=== PATIENT | female | born 1975 | race Caucasian/White ===

== ENCOUNTER 2021-12-14 07:22 | Outpatient (CLI) | payer OTHER, SELFPAY ==
--- NOTE | ~2021-12-14 | US_ITS ---
EXAMINATION: US abdomen limited EXAM DATE: 12/14/2021 08:15 INDICATION: R19.7 - Diarrhea, unspecified. TECHNIQUE: Multiple grayscale and Doppler images of the abdomen right upper quadrant were obtained (b y a technologist who performed the scan) and subsequently reviewed. There is no prior study for jaime zarate. FINDINGS: The pancreatic head and body are normal in appearance. The pancreatic tail is not visualized. There is echogenic liver parenchyma, hepatic steatosis. Some focal fatty sparing. There is no evidence o f intrahepatic biliary duct dilation. Portal venous flow was seen in the hepatopedal, normal directi on and has normal Doppler waveform. No right-sided hydronephrosis. Common bile duct measures 4 mm, which is normal. The gallbladder wall is normal in thickness, with ex pected amount of distention. No sonographic evidence of pericholecystic fluid. There is no cholelit hiases. Technologist performing exam reports patient did not demonstrate sonographic Metcalf's sign. Please note that this sign is less reliable in patients who have received pain medication. IMPRESSION: 1. Hepatic steatosis. Reviewed, dictated and finalized at location B. IMPRESSION: 1. Hepatic steatosis.
== END 2021-12-14 07:23 | disposition home or self-care (01) ==
PROVIDERS: PCP Family Medicine; Visit Provider Physician Assistant Medical
DX: R10.9 Unspecified abdominal pain (principal); R19.7 Diarrhea, unspecified; R19.5 Other fecal abnormalities; K76.0 Fatty (change of) liver, not elsewhere classified
CPT/HCPCS: 76705

== ENCOUNTER 2021-12-15 06:36 | Outpatient (CLI) | payer OTHER, SELFPAY ==
--- NOTE | ~2021-12-15 | CT_ITS ---
EXAMINATION: CT abdomen pelvis w con INDICATION: Bloody stool TECHNIQUE: Computed tomographic images of the abdomen and pelvis were obtained after the administrati on of 100 cc of Omnipaque 350 intravenous contrast. The dose-length product (DLP) was 467.72 mGy-cm. Automated exposure control and iterative reconstruction technique were employed. COMPARISON: None available FINDINGS: Minimal dependent atelectasis is present in the lung bases. The heart size is normal. There is focal steatosis of the liver near the ligamentum teres. A 9 mm hypoattenuating area of the lower spleen likely represents a cyst or lymphangioma. The pancreas, gallbladder, and adrenal glands are no rmal. The kidneys are unremarkable. There is mild lymphadenopathy of the right mid abdomen. There is no free intraperitoneal gas or evidence of bowel obstruction. There is diffuse wall thickening of the colon. The sigmoid colon is somewhat featureless. There is mild lumbar spondylosis. There is a fat-c ontaining umbilical hernia. IMPRESSION: 1. Pancolitis. Somewhat featureless sigmoid colon could reflect underlying ulcerative colitis. Reviewed, dictated and finalized at location A. IMPRESSION: 1. Pancolitis. Somewhat featureless sigmoid colon could reflect underlying ulce rative colitis.
== END 2021-12-15 06:37 | disposition home or self-care (01) ==
LOC: ANHIMG 06:38
PROVIDERS: PCP Family Medicine; Visit Provider Physician Assistant Medical
DX: D72.829 Elevated white blood cell count, unspecified (principal); R19.5 Other fecal abnormalities; R19.7 Diarrhea, unspecified; K51.00 Ulcerative (chronic) pancolitis without complications
CPT/HCPCS: 74177; Q9967

== ENCOUNTER 2021-12-20 14:31 | Inpatient (IN) | payer OTHER, SELFPAY ==
--- NOTE | ~2021-12-20 | CT_ITS ---
EXAMINATION: CT abdomen pelvis w con DATE: 12/20/2021 20:49 INDICATION: recent pancolitis, possible UC, N/V/D TECHNIQUE: Computed tomography (CT) of the abdomen and pelvis was performed with 100 mL Omnipaque-350 intravenous contrast. The dose-length product was 471.32 mGy-cm. COMPARISON: 12/15/2021. FINDINGS: Lower thorax: Bibasilar scar/atelectasis. Liver: Borderline steatosis. Biliary/Gallbladder: Gallbladder is normal. No bile duct dilation. Spleen: Benign splenic cyst. Pancreas: No mass or duct dilation. Adrenals:No mass. Kidneys: No mass, stone, or hydronephrosis. GI tract: No small bowel dilation. Water density wall thickening and pericolonic inflammatory change involving the colon from the hepatic flexure to the rectum. Appendix not visualized. Mesentery/Peritoneum: No ascites or free air. Right lower quadrant mesenteric node measuring up to 12 mm in short axis diameter. Scattered subcentimeter mesenteric nodes. Retroperitoneum: No mass. Multiple subcentimeter para-aortic lymph nodes. Pelvis: Fibroid uterus.. Bones/Soft Tissues: Soft tissues and body wall unremarkable. No acute osseous finding. Additional Findings: None. IMPRESSION: Diffuse infectious/inflammatory colitis, unchanged. Mesenteric lymphadenopathy. Reviewed, dictated and finalized at location K.
[2021-12-20 15:00] VITALS: BP 121/77; PULSE 101; RESP 18; TEMP 37.2; O2SAT 98
--- NOTE | 2021-12-20 16:30 | ED.ABDPAIN ---
HPI - Abdominal Pain General Chief Complaint: Abdominal Pain <Letha Sue PA-C - Last Filed: 12/20/21 21:14> Stated Complaint: abdominal pain, diarrhea <Letha Sue PA-C - Last Filed: 12/20/21 21:14> Time Seen by Provider: 12/20/21 16:29 <Letha Sue PA-C - Last Filed: 12/20/21 21:14> Source: patient <Letha Sue PA-C - Last Filed: 12/20/21 21:14> Mode of arrival: ambulatory <GUERRERO Ureña Last Filed: 12/20/21 21:14> Limitations: no limitations <Letha Sue PA-C - Last Filed: 12/20/21 21:14> History of Present Illness HPI narrative: Patient is a 46-year-old female who presents the ED with report of nausea vomiting diarrhea. Patient reports having persistent diarrhea for the past 4 weeks. Around 2 weeks ago, her stool began to have mucus, pus and blood in it. She tried getting into see her primary care doctor but was unable to. She was seen at [facility] a week ago at which point she was told her labs were okay. She then saw her primary care doctor early last week patient states that she and subsequently had a right upper quadrant ultrasound and CT scan of her abdomen pelvis which showed pancolitis, possibly with consistent with underlying ulcerative colitis. She was placed on levofloxacin and Flagyl and has been taking this as directed, however she has been having vomiting and reports she has not kept these down for the last 2 days. She states anytime she tries to eat or drink she either vomits or has to have a bowel movement. She is still having blood and pus in her stool. She had a fever yesterday which she took Tylenol for. She has had intermittent right upper quadrant pain and lower abdominal cramping prior to having a bowel movement. No urinary symptoms. <Letha Sue PA-C - Last Filed: 12/20/21 21:14> Related Data Home Medications: Home Medications Medication Instructions Recorded Confirmed gshstxfu-lsu-secy-FA-Ca carb-vit K 1 tablet PO DAILY 12/28/21 12/28/21 18 mg iron-400 mcg-500 mg tablet <Letha Sue PA-C - Last Filed: 12/20/21 21:14> Allergies/Adverse Reactions: Allergies Allergy/AdvReac Type Severity Reaction Status Date / Time Sulfa (Sulfonamide Allergy Unknown Itching Verified 12/28/21 09:03 Antibiotics) <Letha Sue PA-C - Last Filed: 12/20/21 21:14> Review of Systems Review of Systems: CONSTITUTIONAL: Reports fever. CARDIOVASCULAR: Denies chest pain. RESPIRATORY: Denies dyspnea. GASTROINTESTINAL: Reports RUQ pain, lower ABD cramping, N/V/D, rectal bleeding, mucous in stool. GENITOURINARY: Denies dysuria or hematuria. MUSCULOSKELETAL: Denies back pain, joint pain, or myalgia. <Letha Sue PA-C - Last Filed: 12/20/21 21:14> All systems reviewed & are unremarkable except as noted in HPI and below <Letha Sue PA-C - Last Filed: 12/20/21 21:14> [facility] Past Medical History Medical History: Medical History Diarrhea Leukocytosis Lower abdominal pain Pancolitis Tear of meniscus of left knee Weight loss <Letha Sue PA-C - Last Filed: 12/20/21 21:14> Surgical History Surgical History: Surgical History History of section <GUERRERO Ureña Last Filed: 12/20/21 21:14> Family History Family History: Family History Father Diabetes mellitus Hypertension Family history of elevated blood lipids Grandparent Diabetes mellitus Hypertension Family history of cardiovascular disease Cerebrovascular accident Malignant neoplasm of prostate Mother Hypertension Family history of elevated blood lipids <GUERRERO Ureña Last Filed: 12/20/21 21:14> Social History Social History: Social History S
[2021-12-20] MEDS: ONDANSETRON INJ 4 MG/2 ML VIAL IV PUSH ×2 (18:20→22:51)
[2021-12-20] MEDS: SODIUM CHLORIDE 0.9% IV 1,000 ML 999 ML IV CONT ×2 (18:20→21:35)
[2021-12-20 18:26] VITALS: BP 112/77; PULSE 91; RESP 16; O2SAT 97
[2021-12-20 18:30] LABS: Basophils Absolute Auto 0.2 K/mm3 (0.0-0.1); Basophils Percent Auto 1.4 % (0.2-1.2); Eosinophils Absolute Auto 0.2 K/mm3 (0-0.3); Eosinophils Percent Auto 1.6 % (0-4.4); Hematocrit 40.6 % (37.0-47.0); Hemoglobin 13.2 g/dL (12.0-15.0); Immature Granulocyte Absolute 0.54 K/mm3 (0.00-0.031); Immature Granulocyte Percent A 4.3 % (0-0.5); Lymphocytes Absolute Auto 1.69 K/mm3 (0.9-3.2); Lymphocytes Percent Auto 13.4 % (18.3-44.2); Mean Corpuscular HGB Conc 32.5 g/dl (32-36); Mean Corpuscular Hemoglobin 28.7 pg (26-34); Mean Corpuscular Volume 88.3 fl (80-100); Mean Platelet Volume 8.8 fl (7.4-10.4); Monocytes Absolute Auto 1.4 K/mm3 (0.1-0.6); Neutrophils Absolute Auto 8.6 K/mm3 (1.3-6.7); Neutrophils Percent Auto 68.3 % (45.5-73.1); Platelet Count Result 562 k/mm3 (150-375); Red Cell Distribution Width 12.9 % (11.5-14.5); White Blood Count 12.6 K/mm3 (4.5-10.0)
[2021-12-20 18:39] LABS: Lactic Acid Reflex 3.7 mmol/L (0.7-2.1)
[2021-12-20 19:06] LABS: Alanine Aminotransferase 12 U/L (4-35); Alkaline Phosphatase 65 U/L (38-126); Anion Gap 6 mmol/L (8-16); Aspartate Amino Transferase 27 U/L (14-36); Bilirubin,Total 0.4 mg/dL (0.2-1.3); Blood Urea Nitrogen 3 mg/dL (7-17); Calcium 7.7 mg/dL (8.4-10.2); Carbon Dioxide 32 mmol/L (22-30); Chloride 94 mmol/L (98-107); Estimated Glomerular Filt Rate > 60; Glucose 110 mg/dL (65-110); Lipase 91 U/L (23-300); Potassium 3.2 mmol/L (3.4-5.0); Sodium 132 mmol/L (137-145)
[2021-12-20 21:28] LABS: Reflex Lactic Acid Yes or No Add Lactic
--- NOTE | 2021-12-20 21:34 | PC.NURSE ---
blood cultures collected and sent down to lab prior to abx starting.
[2021-12-20] MEDS: POTASSIUM CHLORIDE 20 MEQ TABLET 40 MEQ PO (21:35)
[2021-12-20 21:56] LABS: Lactic Acid 0.8 mmol/L (0.7-2.1)
[2021-12-20 22:08] VITALS: BP 115/66; PULSE 90; RESP 16; O2SAT 99
[2021-12-20 22:25] VITALS: BP 129/78; PULSE 97; RESP 18; TEMP 36.8; O2SAT 98; BMI 26.9
--- NOTE | 2021-12-20 22:40 | ADMGEN ---
This patient, Minerva Umana, was admitted to [facility] Surg Room 309-01. Patient/family oriented to hospital policies and general routines including ID bracelet, bed and alarms, visiting hours, pain management, procedures, bathroom and other care routines, personal items, smoking policy, room service/diet, and visiting hours. Information on how to activate the Rapid Response Team has been discussed. Patient/Family are encouraged to report perceived risks to care and to ask questions if they do not understand what they are told or what they should do.
[2021-12-20 23:13] VITALS: BP 122/64; PULSE 91; RESP 18; O2SAT 99
[2021-12-21 00:09] LABS: Appearance Urine Clear (Clear); Bilirubin Urine Negative (Negative); Blood Urine Negative (Negative); Color Urine Yellow (Yellow); Glucose Urine UA Negative (Negative); Ketones Urine Trace mg/dL (Negative); Leukocyte Esterase Ur Negative LEU/UL (Negative); Nitrate Urine Negative (Negative); Protein Urine 1+ mg/dL (Negative); Urobilinogen Urine 0.2 mg/dL (<2.0)
[2021-12-21 00:19] LABS: Bacteria Urine Trace /hpf; Squamous Epithelial Cell Urine Rare /hpf (Few); WBC Urine 0-3 /hpf
[2021-12-21 00:22] LABS: Add Urine Microscopic? YES
[2021-12-21 04:42] LABS: Toxigenic C. Diff NEGATIVE (NEGATIVE)
--- NOTE | 2021-12-21 04:52 | PM.IMHP ---
H&P: HPI History of Present Illness Date/Time: 12/21/21 04:52 Chief Complaint: 1 month of abdominal pain and diarrhea Narrative: 46-year-old female previously healthy female who presented to the ER with 1 month of abdominal pain and diarrhea. The patient reports that she made a road trip to [place]. Few days later she came home and developed crampy abdominal pain that would proceed diarrheal stools. Initially diarrhea was brown and watery in color. After a week or so he diarrhea became more slimy in nature. The last 2 weeks the stools have been mucousy and as time has progressed the stools have become more like raspberry jelly in appearance. She last stools anywhere for a 30 minutes to 1 hour. Much of the time the stools are small in nature and less she eats or drinks anything. When she eats anything she will have more large volume stools. She reported that after she was started on IV fluids in the ER she had 2 very large volume stools. She has been having some lightheadedness with standing and position changes. She feels very dehydrated and thirsty. She reports that due to nausea she has not been able to eat anything. She has been having occasional vomiting. He reported the nausea vomiting did not start until after she was placed on Levaquin and Flagyl on the . She had his outpatient CT of the abdomen pelvis with contrast on the that demonstrated pancolitis with features suggestive of underlying ulcerative colitis. She reports that she was having some fevers a couple of weeks ago with T-max of 101.6. She denies any antibiotic exposures prior to the . She denies any exposure to contaminated water source or well water. She reports that she was on meloxicam for about 45 days prior to onset of her colitis symptoms. She was on meloxicam due to arthritis and a torn meniscus in her left knee. The patient's stool cultures performed as outpatient last week that were negative. Her stool was positive for occult blood. She has no family history of inflammatory bowel disease. Review of Systems Review of Systems: 12 systems were reviewed with pertinent positives and negatives per HPI. Except as documented in the HPI, all other systems were reviewed and are negative. [facility] Past Medical History Medical History (Updated 12/21/21 @ 07:42 by Yu Bobby DO) Diarrhea Pancolitis Tear of meniscus of left knee Surgical History Surgical History (Updated 12/20/21 @ 19:51 by Letha Sue PA-C) History of section Family History Family History Father Diabetes mellitus Hypertension Family history of elevated blood lipids Grandparent Diabetes mellitus Hypertension Family history of cardiovascular disease Cerebrovascular accident Malignant neoplasm of prostate Mother Hypertension Family history of elevated blood lipids Social History Social History (Updated 12/21/21 @ 07:39 by Yu Bobby DO) Social History: She lives in [place] with her of 20 years. 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 She has 3 children ages 25, 19 and 17. She used to smoke socially in small to moderate amounts but quit smoking in her early 30s. She denies any significant alcohol use. She denies any illicit substance use. Code status: Full code Surrogate decision maker: Smoking status: Former smoker Second hand tobacco smoke exposure: Yes Smoking end date: 09/03/09 Alcohol intake: former Substance use: never Spiritual care concerns: No Meds Home Medications and Allergies Home Medications Medication Instructions Recorded Confirmed Type levofloxacin 750 mg tablet 750 mg PO DAILY 10 Days #10 tablet 12/15/21 12/20/21 Rx metronidazole 500 mg tablet 500 mg PO Q6H #40 tablet 12/15/21 12/20/21 Rx colestipol 5 gram oral packet 5 g PO DAILY #30 ea 12/19/21 12/20/21 Rx metoclopramide HCl 5 mg tablet 5 mg PO DAILY #14 tablet 04
[2021-12-21] MEDS: SODIUM CHLORIDE 0.9% IV 1,000 ML 100 ML IV CONT ×2 (05:15→16:39)
[2021-12-21 05:25] VITALS: BP 116/60; PULSE 99; RESP 17; TEMP 36.7; O2SAT 98
[2021-12-21 05:45] LABS: Hemoglobin 11.4 g/dL (12.0-15.0); Mean Corpuscular HGB Conc 32.6 g/dl (32-36); Mean Corpuscular Hemoglobin 29.2 pg (26-34); Mean Corpuscular Volume 89.5 fl (80-100); Mean Platelet Volume 8.8 fl (7.4-10.4); Platelet Count Result 479 k/mm3 (150-375); Red Blood Count 3.91 M/mm3 (4.2-5.4); Red Cell Distribution Width 13.1 % (11.5-14.5); White Blood Count 14.1 K/mm3 (4.5-10.0)
[2021-12-21 05:55] LABS: Anion Gap 5 mmol/L (8-16); Blood Urea Nitrogen 4 mg/dL (7-17); Calcium 7.5 mg/dL (8.4-10.2); Carbon Dioxide 28 mmol/L (22-30); Chloride 98 mmol/L (98-107); Estimated CRCL calculation 89 ml/min; Estimated Glomerular Filt Rate > 60; Glucose 104 mg/dL (65-110); Magnesium 1.8 mg/dL (1.6-2.3); Potassium 3.5 mmol/L (3.4-5.0); Sodium 131 mmol/L (137-145)
[2021-12-21] MEDS: ONDANSETRON INJ 4 MG/2 ML VIAL IV PUSH ×2 (06:25→18:26)
[2021-12-21 10:49] LABS: Toxigenic C. Diff NEGATIVE (NEGATIVE)
--- NOTE | 2021-12-21 11:48 | WPDGICN ---
Assessment and Plan Assessment and plan (1) Pancolitis: Code(s): K51.00 - Ulcerative (chronic) pancolitis without complications Status: Acute Assessment and Plan: admitted with colitis, failed outpatient antibiotics wonder if she could have UC, will do a colonoscopy tomorrow, more recommendations after scope finding will get TB,HIV and HBV status in case patient may need biologics later on (2) Fecal occult blood test positive: Code(s): R19.5 - Other fecal abnormalities Status: Acute Assessment and Plan: from colitis (3) Leukocytosis: Code(s): D72.829 - Elevated white blood cell count, unspecified Status: Acute Assessment and Plan: started on antibiotics stool sample pending C diff negative (4) Lower abdominal pain: Code(s): R10.30 - Lower abdominal pain, unspecified Status: Acute (5) Weight loss: Code(s): R63.4 - Abnormal weight loss Status: Acute Assessment and Plan: from ongoing colitis and lack of appetite GI Consult Note Consult date/time: 12/21/21 11:48 Reason for consult: bloody diarrhea, colitis HPI: Minerva Umana is a 46 year old female with almost a month of diarrhea that gradually worsened with small amount of blood, mucus and urgency, also lower abdominal cramping, chills. Also nausea and more diarrhea after eating, she has not been eating much and lost about [address] scan few days ago that showed colitis, given oral antibiotics but unable to tolerate. Finally she came to ER, CT scan a/p ordered with similar findings (reviewed), also had elevated CRP, WBC 14. Never had a colonoscopy. Last trip to [place] but she was in the city. C diff negative. Review of Systems Constitutional: Constitutional: Reports chills Eyes: Eyes: Denies blurry vision ENT: Reports Normal hearing present Cardiovascular: Cardiovascular: Denies chest pain Respiratory: Respiratory: Denies dyspnea Gastrointestinal: Gastrointestinal: Reports abdominal pain, Reports diarrhea and Reports nausea Genitourinary: Genitourinary: Denies hematuria Musculoskeletal: Musculoskeletal: Denies back pain Integumentary/Breasts: Skin/Breast: Denies dry skin Neurologic: Denies headache(s) Psychiatric: Psychiatric: Denies behavioral changes [facility] Past Medical History Medical History (Updated 12/21/21 @ 14:26 by Hardik Avery MD) Diarrhea Leukocytosis Lower abdominal pain Pancolitis Tear of meniscus of left knee Weight loss Surgical History Surgical History (Updated 12/20/21 @ 19:51 by Letha Sue PA-C) History of section Family History Family History Father Diabetes mellitus Hypertension Family history of elevated blood lipids Grandparent Diabetes mellitus Hypertension Family history of cardiovascular disease Cerebrovascular accident Malignant neoplasm of prostate Mother Hypertension Family history of elevated blood lipids Social History Social History (Updated 12/21/21 @ 07:39 by Yu Bobby DO) Social History: She lives in [place] with her of 20 years. 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 She has 3 children ages 25, 19 and 17. She used to smoke socially in small to moderate amounts but quit smoking in her early 30s. She denies any significant alcohol use. She denies any illicit substance use. Code status: Full code Surrogate decision maker: Smoking status: Former smoker Second hand tobacco smoke exposure: Yes Smoking end date: 09/03/09 Alcohol intake: former Substance use: never Spiritual care concerns: No Meds Home Medications and Allergies Home Medications Medication Instructions Recorded Confirmed Type levofloxacin 750 mg tablet 750 mg PO DAILY 10 Days #10 tablet 12/15/21 12/20/21 Rx metronidazole 500 mg tablet 500 mg PO Q6H #40 tablet 12/15/21 12/20/21 Rx c
--- NOTE | 2021-12-21 11:50 | PM.IMPN ---
Progress Note: A&P Assessment and Plan (1) Pancolitis: Code(s): K51.00 - Ulcerative (chronic) pancolitis without complications Status: Acute Assessment and Plan: Monitor vital signs, I and O's, check stool output, neuro status and patient is a fall risk Monitor serum electrolytes and CBC Monitor lactic acid IV pain management Gentle IV fluid resuscitation Start Zosyn 3.375 mg every 6 hours Consult gastroenterology for further evaluation, appreciate assistance and recommendation Diet:NPO Monitor serum electrolytes, CBC, hemoglobin/hematocrit q.8 hours. If hemoglobin drops below 7 transfuse packed red blood cells Monitor for bloody bowel movements,chest pain,SOB or dizziness/lightheadedness DVT Px: SCDs Avoid anti-coagulations (2) Elevated lactic acid level: Code(s): R79.89 - Other specified abnormal findings of blood chemistry Status: Acute Assessment and Plan: Monitor lactic acid, continue to trend (3) Hypokalemia: Code(s): E87.6 - Hypokalemia Status: Acute Assessment and Plan: Replete serum electrolytes as needed Patient has received 40 mEq p.o. of potassium chloride Subjective Date/time seen: 12/21/21 11:50 The patient is alert and oriented at bedside this morning. No acute events reported by RN during the night. Patient did report acute abdominal cramping and frequent bowel movements. She reported that her bowel movements were read current jelly consistency prior to admission, today she has liquid brown stools. She has been made NPO and Gastroenterology will follow-up for further recommendations. Continue IV fluids and Zosyn, replete electrolytes as needed. Pending blood cultures and stool culture. Review of Systems Review of Systems: All systems reviewed & are unremarkable except as noted in HPI and below Exam Narrative: PHYSICAL EXAM: WEIGHT 82.5 kg BMI 26.9 General: No acute distress, well-developed well-nourished HEENT: Mucous membranes are tacky, no oral pharyngeal erythema, no scleral icterus, head is normocephalic atraumatic Respiratory: Clear to auscultation bilaterally, no increased work of breathing Cardiovascular: Sinus tachycardia, 2+ bilateral radial pedal pulses Gastrointestinal: Hyperactive bowel sounds, mild tenderness in the right upper quadrant to deep palpation, soft, nondistended Skin: Generalized pallor, non jaundice Musculoskeletal: No clubbing, cyanosis or edema Neurological: Alert and oriented, speech is clear, no facial asymmetry, no localizing deficits noted on limited exam Psychiatric: Appropriate mood and affect, pleasant and cooperative : Deferred Hematologic/lymphatic: No anterior cervical or submandibular lymphadenopathy, no petechiae, no bruising Objective Data Vital Signs Vital Signs: Vital Signs - 24 hr 12/20/21 15:00 12/20/21 18:26 12/20/21 22:08 Temperature 99 F Pulse Rate 101 H 91 90 Respiratory Rate 18 16 16 Blood Pressure 121/77 112/77 115/66 Pulse Oximetry 98 97 99 12/20/21 22:25 12/20/21 23:13 12/21/21 05:25 Temperature 98.2 F 98.1 F Pulse Rate 97 91 99 Respiratory Rate 18 18 17 Blood Pressure 129/78 122/64 116/60 Pulse Oximetry 98 99 98 Intake/Output Intake/Output: Intake & Output 12/18/21 12/19/21 12/20/21 12/21/21 23:59 23:59 23:59 23:59 Intake Total 2150 300 Output Total 300 Balance 2150 0 Meds/Results Medications: Active Medications Generic Name Dose Route Start Last Admin Trade Name Freq PRN Reason Stop Dose Admin Piperacillin/Tazobactam/Dextrose 3.375 gm in 50 mls @ 100 mls/hr 12/21/21 05:00 12/21/21 11:03 Zosyn 3.375 Gm/D5w 50ml Pm IVPB 100 mls/hr Q6H LUIS Administration Sodium Chloride 1,000 mls @ 100 mls/hr 12/21/21 05:05 12/21/21 05:15 Normal Saline Iv IV CONT 100 mls/hr .Q10H LUIS Administration Ondansetron HCl 4 mg 12/20/21 21:04 12/21/21 06:25 Ondansetron Inj 4 Mg/2 Ml Vial IV PUSH 4 mg Q4H PRN
[2021-12-21 11:59] VITALS: BMI 26.9
--- NOTE | 2021-12-21 13:04 | PCNSR ---
On 12/21/21, the student, Sally Lucas, provided care and completed [facility] documentation on this patient. I have reviewed the student's documentation and agree with the findings.
[2021-12-21 14:00] VITALS: BP 137/63; PULSE 88; RESP 16; TEMP 37.3; O2SAT 98
[2021-12-21] MEDS: BISACODYL 5 MG TABLET EC 20 MG PO (17:04)
[2021-12-21] MEDS: PEG (High)/E-LYTE SOLN 4,000 ML BTL 4000 ML PO (17:05)
[2021-12-21] MEDS: polyethylene glycoL 3350 238 GM BOTTLE PO (18:05)
[2021-12-21 20:05] VITALS: PULSE 62; RESP 18; O2SAT 100
[2021-12-21 22:00] VITALS: BP 112/68; PULSE 81; RESP 16; TEMP 37; O2SAT 97
[2021-12-22] VITALS (8 sets, daily range): BP systolic 78–131; BP diastolic 44–72; PULSE 73–82; RESP 15–19; TEMP 36.3–37.2; O2SAT 96–98
[2021-12-22] MEDS: SODIUM CHLORIDE 0.9% IV 1,000 ML 100 ML IV CONT ×3 (03:00→22:41)
[2021-12-22 06:35] LABS: Hepatitis B Surface Antigen Negative (Negative)
[2021-12-22 06:53] LABS: Hepatitis B Surface Anti Res Positive
[2021-12-22 08:10] LABS: Hematocrit 32.7 % (37.0-47.0); Hemoglobin 10.6 g/dL (12.0-15.0); Mean Corpuscular HGB Conc 32.4 g/dl (32-36); Mean Corpuscular Hemoglobin 28.6 pg (26-34); Mean Corpuscular Volume 88.4 fl (80-100); Mean Platelet Volume 8.9 fl (7.4-10.4); Platelet Count Result 462 k/mm3 (150-375); White Blood Count 10.4 K/mm3 (4.5-10.0)
[2021-12-22 08:32] LABS: Alanine Aminotransferase 9 U/L (4-35); Albumin Level 2.2 g/dL (3.5-5.1); Alkaline Phosphatase 52 U/L (38-126); Anion Gap 5 mmol/L (8-16); Aspartate Amino Transferase 19 U/L (14-36); Bilirubin,Total 0.1 mg/dL (0.2-1.3); Blood Urea Nitrogen 3 mg/dL (7-17); Calcium 7.3 mg/dL (8.4-10.2); Carbon Dioxide 30 mmol/L (22-30); Chloride 98 mmol/L (98-107); Estimated CRCL calculation 103 ml/min; Estimated Glomerular Filt Rate > 60; Glucose 101 mg/dL (65-110); Potassium 3.1 mmol/L (3.4-5.0); Sodium 133 mmol/L (137-145)
[2021-12-22 09:57] LABS: Band Neutrophils Percent 10 % (0-6); Lymphocytes Absolute Manual 1.66 K/mm3 (1.1-4.5); Monocytes Absolute Manual 1.56 K/mm3 (0.1-0.90); Monocytes Percent Manual 15 % (3-9); Neutrophils Absolute Manual 7.17 K/mm3 (1.7-7.2); Neutrophils Percent Manual 59 % (46-73); Nucleated Red Blood Cells 1 %; Platelet Estimate Adequate (Adequate); Total Cells Counted 100
[2021-12-22] MEDS: LACTATED RINGERS 1,000 ML 150 ML IV CONT (11:29)
--- NOTE | 2021-12-22 11:38 | PM.IMPN ---
Progress Note: A&P Assessment and Plan (1) Pancolitis: Code(s): K51.00 - Ulcerative (chronic) pancolitis without complications Status: Acute Assessment and Plan: Monitor vital signs, I and O's, check stool output, neuro status and patient is a fall risk Monitor serum electrolytes and CBC Monitor lactic acid IV pain management Gentle IV fluid resuscitation Start Zosyn 3.375 mg every 6 hours Consult gastroenterology for further evaluation, appreciate assistance and recommendation Diet:NPO Patient to go to for a colonoscopy on 12/22/2021 Monitor serum electrolytes, CBC, hemoglobin/hematocrit q.8 hours. If hemoglobin drops below 7 transfuse packed red blood cells Monitor for bloody bowel movements,chest pain,SOB or dizziness/lightheadedness DVT Px: SCDs Avoid anti-coagulations (2) Elevated lactic acid level: Code(s): R79.89 - Other specified abnormal findings of blood chemistry Status: Acute Assessment and Plan: Monitor lactic acid, continue to trend (3) Hypokalemia: Code(s): E87.6 - Hypokalemia Status: Acute Assessment and Plan: Replete serum electrolytes as needed Patient has received 40 mEq p.o. of potassium chloride during his hospitalization Subjective Date/time seen: 12/22/21 11:38 Patient was alert and oriented this morning. Pending colonoscopy this morning. She denies any bloody stools this morning. She is able to drink the whole bowel prep prior to the colonoscopy without episodes of emesis. No acute events reported by RN during the night. Pending further recommendations by GI. Review of Systems Review of Systems: All systems reviewed & are unremarkable except as noted in HPI and below Exam Narrative: PHYSICAL EXAM: WEIGHT 82.5 kg BMI 26.9 General: No acute distress, well-developed well-nourished HEENT: Mucous membranes are tacky, no oral pharyngeal erythema, no scleral icterus, head is normocephalic atraumatic Respiratory: Clear to auscultation bilaterally, no increased work of breathing Cardiovascular: Sinus tachycardia, 2+ bilateral radial pedal pulses Gastrointestinal: Hyperactive bowel sounds, mild tenderness in the right upper quadrant to deep palpation, soft, nondistended Skin: Generalized pallor, non jaundice Musculoskeletal: No clubbing, cyanosis or edema Neurological: Alert and oriented, speech is clear, no facial asymmetry, no localizing deficits noted on limited exam Psychiatric: Appropriate mood and affect, pleasant and cooperative : Deferred Hematologic/lymphatic: No anterior cervical or submandibular lymphadenopathy, no petechiae, no bruising Objective Data Vital Signs Vital Signs: Vital Signs - 24 hr 12/21/21 14:00 12/21/21 22:00 12/22/21 06:00 Temperature 99.1 F 98.6 F 98.7 F Pulse Rate 88 81 79 Respiratory Rate 16 16 16 Blood Pressure 137/63 112/68 107/64 Pulse Oximetry 98 97 96 Intake/Output Intake/Output: Intake & Output 12/19/21 12/20/21 12/21/21 12/22/21 23:59 23:59 23:59 23:59 Intake Total 2150 2090 1050 Output Total 300 400 Balance 2150 1790 650 Meds/Results Medications: Active Medications Generic Name Dose Route Start Last Admin Trade Name Freq PRN Reason Stop Dose Admin Piperacillin/Tazobactam/Dextrose 3.375 gm in 50 mls @ 100 mls/hr 12/21/21 05:00 12/22/21 05:36 Zosyn 3.375 Gm/D5w 50ml Pm IVPB Infused Q6H LUIS Infusion Sodium Chloride 1,000 mls @ 100 mls/hr 12/21/21 05:05 12/22/21 03:00 Normal Saline Iv IV CONT 100 mls/hr .Q10H LUIS Administration Lactated Ringer's 1,000 mls @ 150 mls/hr 12/22/21 11:25 12/22/21 11:29 Lr - Lactated Ringers Iv IV CONT 150 mls/hr .Q6H40M LUIS Administration Ondansetron HCl 4 mg 12/20/21 21:04 12/21/21 18:26 Ondansetron Inj 4 Mg/2 Ml Vial IV PUSH 4 mg Q4H PRN Administration Nausea Witch Fernanda 1 pad 12/21/21 23:01 Witch Fernanda 40 Pads TOPICAL PRN PRN Perineal Discomfort
--- NOTE | 2021-12-22 11:56 | WPDANESEPPF ---
Anes - Initial Pre Proc Eval Procedure: Operation Date: 12/22/21 12:00 Proposed Procedures p Colonoscopy - Hardik Avery MD Date/Time: 12/22/21 11:56 Surgeon: Yu Bobby DO Pre Op Diagnosis: Pancolitis,possible ulcerative colitis Patient Data Age: 46 Gender: F Height: 1.75 m Weight: 82.5 kg Last Vital Signs Temp 98.7 F 12/22/21 06:00 Pulse 79 12/22/21 06:00 Resp 16 12/22/21 06:00 BP 107/64 12/22/21 06:00 Pulse Ox 96 12/22/21 06:00 Allergies Allergy/AdvReac Type Severity Reaction Status Date / Time Sulfa (Sulfonamide Allergy Unknown Itching Verified 12/22/21 11:26 Antibiotics) Home Medications Medication Instructions Recorded Confirmed Type levofloxacin 750 mg tablet 750 mg PO DAILY 10 Days #10 tablet 12/15/21 12/20/21 Rx metronidazole 500 mg tablet 500 mg PO Q6H #40 tablet 12/15/21 12/20/21 Rx colestipol 5 gram oral packet 5 g PO DAILY #30 ea 12/19/21 12/20/21 Rx metoclopramide HCl 5 mg tablet 5 mg PO DAILY #14 tablet 12/19/21 12/20/21 Rx Laboratory Tests 12/22/21 12/22/21 12/22/21 05:04 05:06 05:06 WBC 10.4 K/mm3 H K/mm3 (4.5-10.0) RBC 3.70 M/mm3 L M/mm3 (4.2-5.4) Hgb 10.6 g/dL L g/dL (12.0-15.0) Hct 32.7 % L % (37.0-47.0) MCV 88.4 fl fl (80-100) MCH 28.6 pg pg (26-34) MCHC 32.4 g/dl g/dl (32-36) RDW 13.0 % % (11.5-14.5) Plt Count 462 k/mm3 H k/mm3 (150-375) MPV 8.9 fl fl (7.4-10.4) Immature Gran % (Auto) Not Reportable Neut % (Auto) Not Reportable Lymph % (Auto) Not Reportable [place] % (Auto) Not Reportable Eos % (Auto) Not Reportable Baso % (Auto) Not Reportable Lymph # (Auto) Not Reportable [place] # (Auto) Not Reportable Eos # (Auto) Not Reportable Baso # (Auto) Not Reportable Abs Immat Gran (auto) Not Reportable Absolute Neuts (auto) Not Reportable Absolute Nucleated RBC Not Reportable Total Counted 100 Neutrophils % (Manual) 59 % % (46-73) Band Neutrophils % 10 % H % (0-6) Lymphocytes % (Manual) 16.0 % L % (18-44) Monocytes % (Manual) 15 % H % (3-9) Nucleated RBC % Not Reportable Abs Neuts (Manual) 7.17 K/mm3 K/mm3 (1.7-7.2) Abs Lymphs (Manual) 1.66 K/mm3 K/mm3 (1.1-4.5) Abs Monocytes (Manual) 1.56 K/mm3 H K/mm3 (0.1-0.90) Nucleated RBCs 1 % % Platelet Estimate Adequate (Adequate) Sodium Potassium Chloride Carbon Dioxide Anion Gap BUN Creatinine Estim Creat Clear Calc Estimated GFR Glucose Calcium Total Bilirubin AST ALT Alkaline Phosphatase Total Protein Albumin Hep Bs Antigen Negative (Negative) Hep Bs Antibody Positive Hep B Core Total Ab TB Test (QFT) Gold Plus Pending TB Test (QFT) Nil Pending TB Test Mitogen - Nil Pending TB Test Ag - Nil 1 Pending TB Test Ag - Nil 2 Pending 12/22/21 12/22/21 05:06 05:06 WBC RBC Hgb Hct MCV MCH MCHC RDW Plt Count MPV Immature Gran % (Auto) Neut % (Auto) Lymph % (Auto) [place] % (Auto) Eos % (Auto) Baso % (Auto) Lymph # (Auto) [place] # (Auto) Eos # (Auto) Baso # (Auto) Abs Immat Gran (auto) Absolute Neuts (auto) Absolute Nucleated RBC Total Counted Neutrophils % (Manual)
--- NOTE | 2021-12-22 12:50 | PC.NURSE ---
Returned from GI Lab. Report received from Jazmine.
[2021-12-22] MEDS: methylPREDNISolone SOD SUCC 40 MG VIAL IV PUSH ×2 (14:11→21:17)
[2021-12-22] MEDS: MESALAMINE 400 MG DELAYED RELEASE CAPSULE 800 MG PO ×2 (14:11→16:54)
[2021-12-23] MEDS: methylPREDNISolone SOD SUCC 40 MG VIAL IV PUSH ×3 (05:08→20:26)
[2021-12-23 05:57] VITALS: BP 106/64; PULSE 55; RESP 18; TEMP 36.4; O2SAT 99
[2021-12-23 06:53] LABS: Hematocrit 33.4 % (37.0-47.0); Mean Corpuscular HGB Conc 32.9 g/dl (32-36); Mean Corpuscular Volume 88.1 fl (80-100); Mean Platelet Volume 8.7 fl (7.4-10.4); Platelet Count Result 434 k/mm3 (150-375); Red Blood Count 3.79 M/mm3 (4.2-5.4); Red Cell Distribution Width 13.2 % (11.5-14.5); White Blood Count 7.8 K/mm3 (4.5-10.0)
[2021-12-23 07:13] LABS: Alanine Aminotransferase 12 U/L (4-35); Albumin Level 2.5 g/dL (3.5-5.1); Alkaline Phosphatase 57 U/L (38-126); Anion Gap 1 mmol/L (8-16); Aspartate Amino Transferase 25 U/L (14-36); Bilirubin,Total 0.1 mg/dL (0.2-1.3); Blood Urea Nitrogen 2 mg/dL (7-17); Calcium 7.2 mg/dL (8.4-10.2); Carbon Dioxide 35 mmol/L (22-30); Chloride 101 mmol/L (98-107); Estimated CRCL calculation 121 ml/min; Estimated Glomerular Filt Rate > 60; Glucose 163 mg/dL (65-110); Magnesium 2.2 mg/dL (1.6-2.3); Sodium 137 mmol/L (137-145)
[2021-12-23 07:33] LABS: Band Neutrophils Percent 6 % (0-6); Lymphocytes Absolute Manual 0.85 K/mm3 (1.1-4.5); Metamyelocytes Percent 2 %; Monocytes Absolute Manual 0.23 K/mm3 (0.1-0.90); Monocytes Percent Manual 3 % (3-9); Myelocytes Percent 2 %; Neutrophils Absolute Manual 6.39 K/mm3 (1.7-7.2); Neutrophils Percent Manual 76 % (46-73); Total Cells Counted 100
[2021-12-23 07:34] LABS: Anisocytosis 1+ (NORMAL); Platelet Estimate Adequate (Adequate)
[2021-12-23] MEDS: MESALAMINE 400 MG DELAYED RELEASE CAPSULE 800 MG PO ×3 (08:15→16:52)
--- NOTE | 2021-12-23 08:58 | WPDANESPN ---
Anes - Prog Note Post-Op Date/Time: 12/23/21 08:58 Cardiovascular status: normal Respiratory status: normal Airway patency: baseline Mental status: baseline Post-Op hydration status: normal Vital Signs: Last Vital Signs Temp 97.5 F L 12/23/21 05:57 Pulse 55 L 12/23/21 05:57 Resp 18 12/23/21 05:57 BP 106/64 12/23/21 05:57 Pulse Ox 99 12/23/21 05:57 Pain Score (VAS): 0 I/O: Intake & Output 12/22/21 12/23/21 12/23/21 23:59 07:59 15:59 Intake Total 1820 500 Output Total 600 400 Balance 1220 100 Laboratory Tests 12/23/21 06:12 12/23/21 06:12 12/22/21 12/23/21 12/23/21 05:04 06:12 06:12 WBC 10.4 H 7.8 RBC 3.70 L 3.79 L Hgb 10.6 L 11.0 L Hct 32.7 L 33.4 L MCV 88.4 88.1 MCH 28.6 29.0 MCHC 32.4 32.9 RDW 13.0 13.2 Plt Count 462 H 434 H MPV 8.9 8.7 Immature Gran % (Auto) Not Reportable Not Reportable Neut % (Auto) Not Reportable Not Reportable Lymph % (Auto) Not Reportable Not Reportable [place] % (Auto) Not Reportable Not Reportable Eos % (Auto) Not Reportable Not Reportable Baso % (Auto) Not Reportable Not Reportable Lymph # (Auto) Not Reportable Not Reportable [place] # (Auto) Not Reportable Not Reportable Eos # (Auto) Not Reportable Not Reportable Baso # (Auto) Not Reportable Not Reportable Abs Immat Gran (auto) Not Reportable Not Reportable Absolute Neuts (auto) Not Reportable Not Reportable Absolute Nucleated RBC Not Reportable Not Reportable Total Counted 100 100 Neutrophils % (Manual) 59 76 H Band Neutrophils % 10 H 6 Lymphocytes % (Manual) 16.0 L 11.0 L Monocytes % (Manual) 15 H 3 Metamyelocytes % 2 Myelocytes % 2 Nucleated RBC % Not Reportable Not Reportable Abs Neuts (Manual) 7.17 6.39 Abs Lymphs (Manual) 1.66 0.85 L Abs Monocytes (Manual) 1.56 H 0.23 Nucleated RBCs 1 Platelet Estimate Adequate Adequate Anisocytosis 1+ Sodium 137 Potassium 3.0 L Chloride 101 Carbon Dioxide 35 H Anion Gap 1 L BUN 2 L Creatinine 0.50 L Estim Creat Clear Calc 121 Estimated GFR > 60 Glucose 163 H Calcium 7.2 L Magnesium 2.2 Total Bilirubin 0.1 L AST 25 ALT 12 Alkaline Phosphatase 57 Total Protein 6.0 L Albumin 2.5 L TPMT Activity, Quant 12/23/21 06:12 WBC RBC Hgb Hct MCV MCH MCHC RDW Plt Count MPV Immature Gran % (Auto) Neut % (Auto) Lymph % (Auto) [place] % (Auto) Eos % (Auto) Baso % (Auto) Lymph # (Auto) [place] # (Auto) Eos # (Auto) Baso # (Auto) Abs Immat Gran (auto) Absolute Neuts (auto) Absolute Nucleated RBC Total Counted Neutrophils % (Manual) Band Neutrophils % Lymphocytes % (Manual) Monocytes % (Manual) Metamyelocytes % Myelocytes % Nucleated RBC % Abs Neuts (Manual) Abs Lymphs (Manual) Abs Monocytes (Manual) Nucleated RBCs Platelet Estimate Anisocytosis Sodium Potassium Chloride Carbon Dioxide Anion Gap BUN Creatinine Estim Creat Clear Calc Estimated GFR Glucose Calcium Magnesium Total Bilirubin AST ALT Alkaline Phosphatase Total Protein Albumin TPMT Activity, Quant Pending Microbiology 12/21/21 03:24 Stool Escherichia coli Shiga Toxins - Final 12/21/21 03:24 Stool Campylobacter Antigen Assay - Final Post-procedural complaints: none Patient Feedback: Patient satisfied with anesthetic care.
[2021-12-23] MEDS: SODIUM CHLORIDE 0.9% IV 1,000 ML 100 ML IV CONT ×2 (11:34→23:27)
--- NOTE | 2021-12-23 12:59 | PM.IMPN ---
Progress Note: A&P Assessment and Plan (1) Pancolitis: Code(s): K51.00 - Ulcerative (chronic) pancolitis without complications Status: Acute Assessment and Plan: Monitor vital signs, I and O's, check stool output, neuro status and patient is a fall risk Monitor serum electrolytes and CBC Monitor lactic acid IV pain management Gentle IV fluid resuscitation Start Zosyn 3.375 mg every 6 hours Consult gastroenterology for further evaluation, appreciate assistance and recommendation Diet:NPO Patient to go to for a colonoscopy on 12/22/2021 Monitor serum electrolytes, CBC, hemoglobin/hematocrit q.8 hours. If hemoglobin drops below 7 transfuse packed red blood cells Monitor for bloody bowel movements,chest pain,SOB or dizziness/lightheadedness DVT Px: SCDs Avoid anti-coagulations Gastroenterology added IV steroids and mesalamine. possible UC (2) Elevated lactic acid level: Code(s): R79.89 - Other specified abnormal findings of blood chemistry Status: Acute Assessment and Plan: Monitor lactic acid, continue to trend (3) Hypokalemia: Code(s): E87.6 - Hypokalemia Status: Acute Assessment and Plan: Replete serum electrolytes as needed Patient has received 40 mEq p.o. of potassium chloride during his hospitalization Subjective Date/time seen: 12/23/21 12:59 The patient is alert and oriented x4 she is sitting up in the bed this morning and tolerated well. Patient denies any new acute abdominal pain. She did report improvement of her bowel movements. Gastroenterology is added IV steroids and mesalamine. Review of Systems Review of Systems: All systems reviewed & are unremarkable except as noted in HPI and below Exam Narrative: PHYSICAL EXAM: WEIGHT 82.5 kg BMI 26.9 General: No acute distress, well-developed well-nourished HEENT: Mucous membranes are tacky, no oral pharyngeal erythema, no scleral icterus, head is normocephalic atraumatic Respiratory: Clear to auscultation bilaterally, no increased work of breathing Cardiovascular: Sinus tachycardia, 2+ bilateral radial pedal pulses Gastrointestinal: Hyperactive bowel sounds, mild tenderness in the right upper quadrant to deep palpation, soft, nondistended Skin: Generalized pallor, non jaundice Musculoskeletal: No clubbing, cyanosis or edema Neurological: Alert and oriented, speech is clear, no facial asymmetry, no localizing deficits noted on limited exam Psychiatric: Appropriate mood and affect, pleasant and cooperative : Deferred Hematologic/lymphatic: No anterior cervical or submandibular lymphadenopathy, no petechiae, no bruising Objective Data Vital Signs Vital Signs: Vital Signs - 24 hr 12/22/21 13:09 12/22/21 13:46 12/22/21 21:52 Temperature 98.0 F 97.3 F L 97.9 F Pulse Rate 78 82 76 Respiratory Rate 16 17 17 Blood Pressure 101/59 L 111/72 131/69 Pulse Oximetry 98 97 97 12/23/21 05:57 Temperature 97.5 F L Pulse Rate 55 L Respiratory Rate 18 Blood Pressure 106/64 Pulse Oximetry 99 Intake/Output Intake/Output: Intake & Output 12/20/21 12/21/21 12/22/21 12/23/21 23:59 23:59 23:59 23:59 Intake Total 2150 2090 4070 2380 Output Total 300 1000 400 Balance 2150 1790 3070 1980 Meds/Results Medications: Active Medications Generic Name Dose Route Start Last Admin Trade Name Freq PRN Reason Stop Dose Admin Piperacillin/Tazobactam/Dextrose 3.375 gm in 50 mls @ 100 mls/hr 12/21/21 05:00 12/23/21 11:47 Zosyn 3.375 Gm/D5w 50ml Pm IVPB Infused Q6H LUIS Infusion Sodium Chloride 1,000 mls @ 100 mls/hr 12/21/21 05:05 12/23/21 11:34 Normal Saline Iv IV CONT 100 mls/hr .Q10H LUIS Administration Mesalamine 800 mg 12/22/21 13:00 12/23/21 08:15 Mesalamine 400 Mg Delayed Release Capsule PO 800 mg TID LUIS Administration Methylprednisolone Sodium Succinate 40 mg 12/22/21 14:00 12/23/21 05:08 Methylprednisolone Sod Succ 40 Mg Vial IV PU
[2021-12-23 14:00] VITALS: BP 101/67; PULSE 62; RESP 18; TEMP 36.6; O2SAT 100
--- NOTE | 2021-12-23 15:20 | WPDGIPROGNO ---
Progress Note: A&P Assessment and Plan (1) Pancolitis: Code(s): K51.00 - Ulcerative (chronic) pancolitis without complications Status: Acute Assessment and Plan: colonoscopy consistent with ulcerative colitis, pending bx started on mesalamine and iv steroids- probably tomorrow can switch to oral prednisone and then she can go home with slow taper (40mg daily reducing 5 mg each week) and follow-up in office in 4-6 weeks. We can reassess if may need biologics (HBV,TB status pending) (2) Leukocytosis: Code(s): D72.829 - Elevated white blood cell count, unspecified Status: Acute Assessment and Plan: resolved (3) Hypokalemia: Code(s): E87.6 - Hypokalemia Status: Acute Assessment and Plan: repleting (4) Lower abdominal pain: Code(s): R10.30 - Lower abdominal pain, unspecified Status: Acute Assessment and Plan: stable (5) Weight loss: Code(s): R63.4 - Abnormal weight loss Status: Acute Subjective Date/time seen: 12/23/21 15:20 Interval history: mild pain in rlq after using restroom, doing ok otherwise Review of Systems Review of Systems: All systems reviewed & are unremarkable except as noted in HPI and below Exam Const: General: comfortable and no acute distress HENMT: General nose exam: Normal nares present Eyes: General: appearance normal, both eyes and all related structures Neck: Neck: no JVD Resp: Auscultation: clear to auscultation bilaterally Cardio: Rate: regular rate Rhythm: regular rhythm GI: Inspection: non-distended GI Palp: Yes Soft to palpation Skin: General skin exam: normal color Neuro: General: gait normal Speech: normal speech Extrem: General: normal to inspection Psych: Mental Status: mental status grossly normal Objective Data Vital Signs Vital Signs: Vital Signs - 24 hr 12/22/21 21:52 12/23/21 05:57 12/23/21 14:00 Temperature 97.9 F 97.5 F L 98 F Pulse Rate 76 55 L 62 Respiratory Rate 17 18 18 Blood Pressure 131/69 106/64 101/67 Pulse Oximetry 97 99 100 Intake/Output Intake/Output: Intake & Output 12/20/21 12/21/21 12/22/21 12/23/21 23:59 23:59 23:59 23:59 Intake Total 2150 2090 4070 2380 Output Total 300 1000 400 Balance 2150 1790 3070 1980 Meds/Results Medications: Active Medications Generic Name Dose Route Start Last Admin Trade Name Freq PRN Reason Stop Dose Admin Piperacillin/Tazobactam/Dextrose 3.375 gm in 50 mls @ 100 mls/hr 12/21/21 05:00 12/23/21 11:47 Zosyn 3.375 Gm/D5w 50ml Pm IVPB Infused Q6H LUIS Infusion Sodium Chloride 1,000 mls @ 100 mls/hr 12/21/21 05:05 12/23/21 11:34 Normal Saline Iv IV CONT 100 mls/hr .Q10H LUIS Administration Mesalamine 800 mg 12/22/21 13:00 12/23/21 13:40 Mesalamine 400 Mg Delayed Release Capsule PO 800 mg TID LUIS Administration Methylprednisolone Sodium Succinate 40 mg 12/22/21 14:00 12/23/21 13:40 Methylprednisolone Sod Succ 40 Mg Vial IV PUSH 40 mg Q8HR LUIS Administration Ondansetron HCl 4 mg 12/20/21 21:04 12/21/21 18:26 Ondansetron Inj 4 Mg/2 Ml Vial IV PUSH 4 mg Q4H PRN Administration Nausea Witch [place]anda 1 pad 12/21/21 23:01 Witch [place]anda 40 Pads TOPICAL PRN PRN Perineal Discomfort Radiology Results: ITS Impressions Abdomen/Pelvis CT 12/20/21 21:19 IMPRESSION: Diffuse infectious/inflammatory colitis, unchanged. Mesenteric lymphadenopathy. Labs Labs: Laboratory Results - last 24 hr 12/23/21 12/23/21 06:12 06:12 WBC 7.8 RBC 3.79 L Hgb 11.0 L Hct 33.4 L MCV 88.1 MCH 29.0 MCHC 32.9 RDW 13.2 Plt Count 434 H MPV 8.7 Immature Gran % (Auto) Not Reportable Neut % (Auto) Not Reportable Lymph % (Auto) Not Reportable [place] % (Auto) Not Reportable Eos % (Auto) Not Reportable Baso % (Auto) Not Reportable Lymph # (Auto) Not Reportable [place] # (Auto) Not Reportable Eos # (Auto)
--- NOTE | 2021-12-23 15:27 | PCNSR ---
On 12/23/21, the student, Sally Lucas, provided care and completed [facility] documentation on this patient. I have reviewed the student's documentation and agree with the findings..
[2021-12-23 21:52] VITALS: BP 108/63; PULSE 52; RESP 16; TEMP 36.1; O2SAT 99
[2021-12-24] MEDS: methylPREDNISolone SOD SUCC 40 MG VIAL IV PUSH (05:11)
[2021-12-24 06:00] VITALS: BP 97/51; PULSE 57; RESP 16; TEMP 36.1; O2SAT 97
[2021-12-24 08:00] VITALS: PULSE 57; RESP 16; O2SAT 97
[2021-12-24] MEDS: MESALAMINE 400 MG DELAYED RELEASE CAPSULE 800 MG PO ×2 (09:39→14:52)
[2021-12-24 11:03] LABS: Hematocrit 35.7 % (37.0-47.0); Hemoglobin 11.8 g/dL (12.0-15.0); Mean Corpuscular HGB Conc 33.1 g/dl (32-36); Mean Corpuscular Hemoglobin 29.1 pg (26-34); Mean Corpuscular Volume 87.9 fl (80-100); Mean Platelet Volume 8.9 fl (7.4-10.4); Platelet Count Result 661 k/mm3 (150-375); Red Blood Count 4.06 M/mm3 (4.2-5.4); Red Cell Distribution Width 13.4 % (11.5-14.5); White Blood Count 19.9 K/mm3 (4.5-10.0)
[2021-12-24 11:17] LABS: Alanine Aminotransferase 16 U/L (4-35); Albumin Level 3.4 g/dL (3.5-5.1); Alkaline Phosphatase 73 U/L (38-126); Anion Gap 7 mmol/L (8-16); Aspartate Amino Transferase 33 U/L (14-36); Bilirubin,Total 0.2 mg/dL (0.2-1.3); Blood Urea Nitrogen 8 mg/dL (7-17); Calcium 7.8 mg/dL (8.4-10.2); Carbon Dioxide 28 mmol/L (22-30); Chloride 102 mmol/L (98-107); Estimated CRCL calculation 103 ml/min; Estimated Glomerular Filt Rate > 60; Glucose 162 mg/dL (65-110); Potassium 3.2 mmol/L (3.4-5.0); Sodium 137 mmol/L (137-145)
[2021-12-24 11:27] LABS: Atypical Lymphocytes Present; Band Neutrophils Percent 15 % (0-6); Large Platelets Present; Lymphocytes Absolute Manual 2.58 K/mm3 (1.1-4.5); Metamyelocytes Percent 1 %; Monocytes Absolute Manual 1.19 K/mm3 (0.1-0.90); Monocytes Percent Manual 6 % (3-9); Myelocytes Percent 1 %; Neutrophils Absolute Manual 15.72 K/mm3 (1.7-7.2); Neutrophils Percent Manual 64 % (46-73); Platelet Estimate Increased (Adequate); Total Cells Counted 100
[2021-12-24 11:56] LABS: NIL 0.01 IU/mL; Quantiferon TB Plus, 1T NEGATIVE (NEGATIVE)
--- NOTE | 2021-12-24 12:20 | WPDGIPROGNO ---
Progress Note: A&P Assessment and Plan (1) Pancolitis: Code(s): K51.00 - Ulcerative (chronic) pancolitis without complications Status: Acute Assessment and Plan: colonoscopy and path report consistent with ulcerative colitis affecting most of the colon She can go home today with mesalamine (already on it) and transition to oral prednisone with slow taper (40mg daily reducing 5 mg each week) and follow-up in office in 4-6 weeks. We can reassess if may need biologic (HBV,TB status. TPMT pending), will depend on clinical course. Repeat colonoscopy also based on symptoms, probably in 1 year to assess healing. (2) Leukocytosis: Code(s): D72.829 - Elevated white blood cell count, unspecified Status: Acute Assessment and Plan: probably from steroids now (3) Hypokalemia: Code(s): E87.6 - Hypokalemia Status: Acute Assessment and Plan: repleting (4) Lower abdominal pain: Code(s): R10.30 - Lower abdominal pain, unspecified Status: Acute Assessment and Plan: improved (5) Weight loss: Code(s): R63.4 - Abnormal weight loss Status: Acute Subjective Date/time seen: 12/24/21 12:20 Interval history: she noted less blood with stool and less diarrhea, slowly feeling better and tolerating diet. She feels like going home. Review of Systems Review of Systems: All systems reviewed & are unremarkable except as noted in HPI and below Exam Const: General: comfortable and no acute distress HENMT: General nose exam: Normal nares present Eyes: General: appearance normal, both eyes and all related structures Neck: Neck: no JVD Resp: Auscultation: clear to auscultation bilaterally Cardio: Rate: regular rate Rhythm: regular rhythm GI: Inspection: non-distended GI Palp: Yes Soft to palpation Skin: General skin exam: normal color Neuro: General: gait normal Speech: normal speech Extrem: General: normal to inspection Psych: Mental Status: mental status grossly normal Objective Data Vital Signs Vital Signs: Vital Signs - 24 hr 12/23/21 14:00 12/23/21 21:52 12/24/21 06:00 Temperature 98 F 97.0 F L 96.9 F L Pulse Rate 62 52 L 57 L Respiratory Rate 18 16 16 Blood Pressure 101/67 108/63 97/51 L Pulse Oximetry 100 99 97 12/24/21 08:00 Temperature Pulse Rate 57 L Respiratory Rate 16 Blood Pressure Pulse Oximetry 97 Intake/Output Intake/Output: Intake & Output 12/21/21 12/22/21 12/23/21 12/24/21 23:59 23:59 23:59 23:59 Intake Total 2090 4070 4080 920 Output Total 300 1000 700 Balance 1790 3070 3380 920 Meds/Results Medications: Active Medications Generic Name Dose Route Start Last Admin Trade Name Freq PRN Reason Stop Dose Admin Piperacillin/Tazobactam/Dextrose 3.375 gm in 50 mls @ 100 mls/hr 12/21/21 05:00 12/24/21 11:34 Zosyn 3.375 Gm/D5w 50ml Pm IVPB 100 mls/hr Q6H LUIS Administration Sodium Chloride 1,000 mls @ 100 mls/hr 12/21/21 05:05 12/23/21 23:27 Normal Saline Iv IV CONT 100 mls/hr .Q10H LUIS Administration Mesalamine 800 mg 12/22/21 13:00 12/24/21 09:39 Mesalamine 400 Mg Delayed Release Capsule PO 800 mg TID LUIS Administration Ondansetron HCl 4 mg 12/20/21 21:04 12/21/21 18:26 Ondansetron Inj 4 Mg/2 Ml Vial IV PUSH 4 mg Q4H PRN Administration Nausea Prednisone 40 mg 12/25/21 08:00 Prednisone 20 Mg Tablet PO DAILY@0800 LUIS Witch [place] 1 pad 12/21/21 23:01 Witch [place] 40 Pads TOPICAL PRN PRN Perineal Discomfort Radiology Results: ITS Impressions Abdomen/Pelvis CT 12/20/21 21:19 IMPRESSION: Diffuse infectious/inflammatory colitis, unchanged. Mesenteric lymphadenopathy. Labs Labs: Laboratory Results - last 24 hr 12/22/21 12/24/21 12/24/21 05:06 10:27 10:27 WBC 19.9 H RBC 4.06 L Hgb 11.8 L Hct 35.7 L MCV 87.9 MCH 29.1 MCHC 33.1 RDW 13.4 Plt Count 661 H D MPV 8.9
--- NOTE | 2021-12-24 13:23 | PM.DS ---
DS: Admitting Diagnosis Discharge Date 12/24/2021 Admitting Diagnosis Acute abdominal pain Pancolitis Elevated lactic acid Hypokalemia DS: Discharge Diagnosis Discharge Diagnosis (1) Pancolitis: Code(s): K51.00 - Ulcerative (chronic) pancolitis without complications Status: Acute Assessment and Plan: Monitor vital signs, I and O's, check stool output, neuro status and patient is a fall risk Monitor serum electrolytes and CBC Monitor lactic acid IV pain management Gentle IV fluid resuscitation Start Zosyn 3.375 mg every 6 hours Consult gastroenterology for further evaluation, appreciate assistance and recommendation Diet:NPO Patient to go to for a colonoscopy on 12/22/2021 Monitor serum electrolytes, CBC, hemoglobin/hematocrit q.8 hours. If hemoglobin drops below 7 transfuse packed red blood cells Monitor for bloody bowel movements,chest pain,SOB or dizziness/lightheadedness DVT Px: SCDs Avoid anti-coagulations Gastroenterology added IV steroids and mesalamine. possible UC (2) Elevated lactic acid level: Code(s): R79.89 - Other specified abnormal findings of blood chemistry Status: Acute Assessment and Plan: Monitor lactic acid, continue to trend (3) Hypokalemia: Code(s): E87.6 - Hypokalemia Status: Acute Assessment and Plan: Replete serum electrolytes as needed Patient has received 40 mEq p.o. of potassium chloride during his hospitalization (4) Ulcerative colitis: Code(s): K51.90 - Ulcerative colitis, unspecified, without complications Status: Acute Assessment and Plan: Patient was started on steroids, Solu-Medrol 125 per GI and transition to oral prednisone 40 mg daily reducing 5 mg each week and follow-up in his office within 4-6 weeks Start mesalamine DS: Summary Hospital Course Reason for hospitalization: Acute abdominal pain Hospital Course: 46-year-old female previously healthy female who presented to the ER with 1 month of abdominal pain and diarrhea. The patient reports that she made a road trip to [place]. Few days later she came home and developed crampy abdominal pain that would proceed diarrheal stools. Initially diarrhea was brown and watery in color. After a week or so he diarrhea became more slimy in nature. The last 2 weeks the stools have been mucousy and as time has progressed the stools have become more like raspberry jelly in appearance. She last stools anywhere for a 30 minutes to 1 hour. Much of the time the stools are small in nature and less she eats or drinks anything. When she eats anything she will have more large volume stools. She reported that after she was started on IV fluids in the ER she had 2 very large volume stools. She has been having some lightheadedness with standing and position changes. She feels very dehydrated and thirsty. She reports that due to nausea she has not been able to eat anything. She has been having occasional vomiting. He reported the nausea vomiting did not start until after she was placed on Levaquin and Flagyl on the . She had his outpatient CT of the abdomen pelvis with contrast on the that demonstrated pancolitis with features suggestive of underlying ulcerative colitis. While in the emergency department patient was started on IV antibiotics Zosyn and stool cultures were obtained which were negative for an infectious cause of colitis. Gastroenterology was consulted for further evaluation persistent diarrhea given the patient's symptoms and imaging findings clinical picture is certainly consistent with ulcerative colitis. This steroids were initially held off until a colonoscopy was able to be performed to confirm this diagnosis. Patient also requested for anti diarrheal medications although this is not administered until further evaluation by Gastroenterology. Gastroenterology was able to evaluate the patient had a colonoscopy performed which did reveal
[2021-12-24 14:00] VITALS: BP 115/64; PULSE 70; RESP 18; TEMP 36.8; O2SAT 99
[2021-12-26 03:38] LABS: Hepatitis B Core Ab Total Nonreactive (Nonreactive)
[2021-12-30 21:43] LABS: TPMT Activity 8
== END 2021-12-24 15:15 | disposition home or self-care (01) | DRG 386 ==
LOC: ANHED 21:12 → ANH3MEDSUR 21:33
PROVIDERS: Internal Medicine Gastroenterology; Physician Assistant; Admitting Provider Internal Medicine; Emergency Provider Emergency Medicine; PCP Family Medicine; Visit Provider Nurse Practitioner Family
PROC: 0DJD8ZZ Inspection of Lower Intestinal Tract, Via Natural or Artificial Opening Endoscopic (ICD-10-PCS; CPT 45378; principal; 2021-12-22 12:00)
DX: K51.00 Ulcerative (chronic) pancolitis without complications (principal); E87.2 Acidosis; K62.89 Other specified diseases of anus and rectum; E87.6 Hypokalemia; R63.4 Abnormal weight loss; D72.829 Elevated white blood cell count, unspecified; Z87.891 Personal history of nicotine dependence
CPT/HCPCS: 36415; 74177; 80048; 80053; 81001; 81025; 82657; 83605; 83690; 83735; 85025; 85027; 86480; 86704; 86706; 87040; 87045; 87340; 87427; 87493; 88305; 96361; 96365; 96375; 96376; 99285; A9270; G0378; J0131; J2405; J2543; J2704; J2920; J7030; J7120; Q9967

== ENCOUNTER 2022-02-14 01:12 | Observation (INO) | payer OTHER, SELFPAY ==
--- NOTE | ~2022-02-14 | CT_ITS ---
EXAMINATION: CT abdomen pelvis wo con DATE: 02/14/2022 03:44 INDICATION: Right-sided abdominal pain TECHNIQUE: Computed tomography (CT) of the abdomen and pelvis was performed without intravenous contr ast. Automated exposure control and iterative reconstruction technique were employed. Exam dose: 451 .93 mGy-cm total exam DLP. COMPARISON: December 20, 2021 CT abdomen pelvis FINDINGS: There is discoid atelectasis and/or scarring in the lower lung zones involving primarily th e medial segment of the middle lobe and the left lower lobe. Normal heart size. No pericardial or pleural effusion. Hepatic steatosis. The liver, gallbladder, bile ducts, spleen, pancreas and pancreatic duct are other alvarado unremarkable. Normal morphology of the adrenal glands. There are couple of nonobstructing right renal calculi measuring up to millimeters maximal dimension. No ureteral calculus or hydroureteronephrosis is noted on either side. Normal caliber of the abdominal aorta. Up to 11.8 x 13.5 mm right lower quadrant lymph nodes and shotty nonenlarged mesenteric lymph nodes, likely reactive or secondary to mesenteric adenitis. No intraperitoneal or retroperitoneal or pelvic mass lesion or adenopathy or ascites is noted otherwise. The urinary bladder, uterus and adnexal areas are unremarkable. No evidence of appendicitis. There is diffuse thickening of the colon wall and mild pericolic fat stranding suggesting colitis. No bowel obstruction or intraperitoneal free air. Included skeletal structures are unremarkable. No suspicious osteolytic or osteoblastic lesions are n oted. IMPRESSION: Diffuse colon wall thickening or pericolic fat stranding, suggesting colitis; probable r eactive right lower quadrant and mesenteric lymphadenopathy Normal appendix Minimal nonobstructive right nephrolithiasis Hepatic steatosis Reviewed, dictated and finalized at [facility]. Reviewed, dictated and finalized at location [facility]. IMPRESSION: Diffuse colon wall thickening or pericolic fat stranding, suggesti ng colitis; probable reactive right lower quadrant and mesenteric lymphadenopat hy Normal appendix Minimal nonobstructive right nephrolithiasis Hepatic steatosis
--- NOTE | ~2022-02-14 | XR_ITS ---
XR chest 2V DATE: 02/14/2022 02:38 INDICATION: Cough, fever TECHNIQUE: PA and lateral views COMPARISON: None FINDINGS: Minimal discoid atelectasis or scarring in the lower lung zones. No pulmonary infiltrate or consolidation. No pleural effusion or pulmonary vascular congestion or pneumothorax. Normal heart size. No hilar or mediastinal enlargement. IMPRESSION: Minimal discoid atelectasis or scarring in the lower lung zones; no active cardiopulmonar y disease Reviewed, dictated and finalized at location [facility]. IMPRESSION: Minimal discoid atelectasis or scarring in the lower lung zones; no active cardiopulmonary disease
[2022-02-14 01:14] VITALS: BP 126/67; PULSE 100; RESP 16; TEMP 37.4; O2SAT 97
[2022-02-14] MEDS: SODIUM CHLORIDE 0.9% IV 1,000 ML 999 ML IV CONT (02:13)
[2022-02-14 02:30] LABS: Basophils Absolute Auto 0.1 K/mm3 (0.0-0.1); Basophils Percent Auto 0.7 % (0.2-1.2); Eosinophils Absolute Auto 0.2 K/mm3 (0-0.3); Hematocrit 34.1 % (37.0-47.0); Hemoglobin 10.9 g/dL (12.0-15.0); Immature Granulocyte Absolute 0.35 K/mm3 (0.00-0.031); Lymphocytes Absolute Auto 1.85 K/mm3 (0.9-3.2); Lymphocytes Percent Auto 10.4 % (18.3-44.2); Mean Corpuscular Hemoglobin 27.4 pg (26-34); Mean Corpuscular Volume 85.7 fl (80-100); Mean Platelet Volume 8.5 fl (7.4-10.4); Monocytes Absolute Auto 1.2 K/mm3 (0.1-0.6); Monocytes Percent Auto 6.8 % (2.6-8.5); Neutrophils Percent Auto 79.1 % (45.5-73.1); Platelet Count Result 517 k/mm3 (150-375); Red Blood Count 3.98 M/mm3 (4.2-5.4); Red Cell Distribution Width 13.5 % (11.5-14.5); White Blood Count 17.7 K/mm3 (4.5-10.0)
[2022-02-14 02:33] LABS: Appearance Urine Slightly Cloudy (Clear); Bilirubin Urine Negative (Negative); Blood Urine 1+ (Negative); Glucose Urine UA Negative (Negative); Ketones Urine Negative (Negative); Leukocyte Esterase Ur 1+ LEU/UL (Negative); Nitrate Urine Negative (Negative); Protein Urine Trace mg/dL (Negative); Specific Grav Ur 1.015 (1.001-1.035); Urobilinogen Urine 0.2 mg/dL (<2.0)
[2022-02-14 02:38] LABS: Bacteria Urine Trace /hpf; Mucus Urine Rare /lpf; Squamous Epithelial Cell Urine Many /hpf (Few); Transitional Epi Cells Urine Rare /hpf (None Seen); WBC Urine 16-20 /hpf
[2022-02-14 02:40] LABS: Add Urine Microscopic? YES; Color Urine Dark Yellow (Yellow)
[2022-02-14 02:41] LABS: Lactic Acid Reflex 0.8 mmol/L (0.7-2.0)
[2022-02-14 02:44] LABS: Alanine Aminotransferase 16 U/L (6-35); Albumin Level 3.8 g/dL (3.5-5.1); Alkaline Phosphatase 73 U/L (38-126); Anion Gap 7 mmol/L (8-16); Aspartate Amino Transferase 23 U/L (14-36); Bilirubin,Total 0.3 mg/dL (0.2-1.3); Blood Urea Nitrogen 8 mg/dL (7-17); Calcium 8.8 mg/dL (8.4-10.2); Carbon Dioxide 32 mmol/L (22-30); Chloride 93 mmol/L (98-107); Estimated CRCL calculation 79 ml/min; Estimated Glomerular Filt Rate > 60; Glucose 109 mg/dL (65-110); Potassium 2.7 mmol/L (3.4-5.0); Sodium 132 mmol/L (137-145)
[2022-02-14 03:06] LABS: SARS-CoV-2 RNA PCR Negative
[2022-02-14] MEDS: POTASSIUM CHLORIDE 20 MEQ TABLET 40 MEQ PO ×3 (03:08→12:23)
--- NOTE | 2022-02-14 03:37 | PC.NURSE ---
Pt in imaging at this time.
[2022-02-14 03:40] VITALS: BP 119/79; PULSE 80; RESP 16; O2SAT 99
--- NOTE | 2022-02-14 04:56 | ED.FEVER ---
HPI - Fever General Chief Complaint: Fever Stated Complaint: fever chills cough Time Seen by Provider: 02/14/22 01:34 History of Present Illness HPI Narrative: Patient is a 46-year-old female who presents ER with fever. Reports she had a temperature of 101.3 ?F tonight. Patient was recently diagnosed with ulcerative colitis. She has had persistent diarrhea with intermittent bleeding. She has been taking prednisone and mesalamine. She sees Dr. Fuller as her GI doctor. She had a fever last week. The nurse practitioner in the GI office recommend that she come to the ER should she have recurrent fever. This happened tonight. Patient has been taking ciprofloxacin to help treat infection. Previous biopsy showed cryptic abscesses. Related Data Home Medications Medication Instructions Recorded Confirmed vruysaip-ddt-bssi-FA-Ca carb-vit K 1 tablet PO DAILY 12/28/21 01/18/22 18 mg iron-400 mcg-500 mg tablet (One-A-Day Womens Formula) Allergies Allergy/AdvReac Type Severity Reaction Status Date / Time Sulfa (Sulfonamide Allergy Unknown Itching Verified 02/14/22 02:01 Antibiotics) [facility] Past Medical History Medical History (Updated 02/14/22 @ 06:23 by Yu Bobby DO) H/O radioactive iodine thyroid ablation Tear of meniscus of left knee Ulcerative colitis (~11/2021) Surgical History Surgical History (Updated 02/14/22 @ 06:23 by Yu Bobby DO) Abnormal colonoscopy (12/22/21) History of section Family History Family History Father Diabetes mellitus Hypertension Family history of elevated blood lipids Grandparent Diabetes mellitus Hypertension Family history of cardiovascular disease Cerebrovascular accident Malignant neoplasm of prostate Mother Hypertension Family history of elevated blood lipids Social History Social History Social History: She lives in [place] with her of 20 years. 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 She has 3 children ages 25, 19 and 17. She used to smoke socially in small to moderate amounts but quit smoking in her early 30s. She denies any significant alcohol use. She denies any illicit substance use. Code status: Full code Surrogate decision maker: Smoking status: Never smoker Second hand tobacco smoke exposure: Yes Smoking end date: 09/03/09 Alcohol intake: former Substance use: never Spiritual care concerns: No Exam Narrative: GENERAL: Well-appearing, well-nourished, and in no acute distress. HEAD: Normocephalic, atraumatic. ENT: Mucous membranes moist. CHEST: Clear to auscultation. No respiratory distress. HEART: Regular rate and rhythm. Normal peripheral pulses. ABDOMEN: Soft, nontender, nondistended. EXTREMITIES: Normal range of motion. No edema. SKIN: Warm, dry, no rash. NEURO: Alert and oriented x3. PSYCH: Normal mood and affect. Course Course Emergency Course: Admit to hospitalist service. Discussed with GI and recommend continuing Cipro as he has a anti-inflammatory effect. Would like to add IV Solu-Medrol 40 mg every 6 hours. Vital Signs Vital signs: Vital Signs Temperature 99.3 F 02/14/22 01:14 Pulse Rate 100 02/14/22 01:14 Respiratory Rate 16 02/14/22 01:14 Blood Pressure 126/67 02/14/22 01:14 Pulse Oximetry 97 02/14/22 01:14 Oxygen Delivery Room Air 02/14/22 01:14 Temperature 99.3 F 02/14/22 01:14 Pulse Rate 80 02/14/22 05:29 Respiratory Rate 18 02/14/22 05:29 Blood Pressure 124/78 02/14/22 05:29 Pulse Oximetry 96 02/14/22 05:29 Oxygen Delivery Room Air 02/14/22 02:00 MDM - Fever Lab Data Result diagrams: 02/14/22 02:14 02/14/22 02:14 Labs: Lab Results 02/14/22 02/14/22 02/14/22 Range/Units 02:14 02:14 02:14 WBC 17.7 H (4.5-10.0) K/mm3 RBC 3.98 L (4.2-5.
[2022-02-14 05:29] VITALS: BP 124/78; PULSE 80; RESP 18; O2SAT 96
[2022-02-14 06:42] LABS: Magnesium 1.7 mg/dL (1.6-2.3)
[2022-02-14] MEDS: methylPREDNISolone SOD SUCC 40 MG VIAL IV PUSH ×4 (07:17→23:12)
[2022-02-14] MEDS: CIPROFLOXACIN 400 MG/D5W 200ML 200 ML 200 MG IVPB ×2 (07:17→18:29)
[2022-02-14 07:27] VITALS: PULSE 82; RESP 16; O2SAT 99
[2022-02-14 09:32] LABS: Hematocrit 33.7 % (37.0-47.0); Hemoglobin 10.8 g/dL (12.0-15.0); Mean Corpuscular Hemoglobin 27.6 pg (26-34); Mean Platelet Volume 8.5 fl (7.4-10.4); Platelet Count Result 478 k/mm3 (150-375); Red Blood Count 3.92 M/mm3 (4.2-5.4); Red Cell Distribution Width 13.7 % (11.5-14.5); White Blood Count 13.6 K/mm3 (4.5-10.0)
[2022-02-14 10:00] LABS: Alanine Aminotransferase 19 U/L (6-35); Albumin Level 3.3 g/dL (3.5-5.1); Alkaline Phosphatase 69 U/L (38-126); Anion Gap 6 mmol/L (8-16); Aspartate Amino Transferase 22 U/L (14-36); Bilirubin,Total < 0.1 mg/dL (0.2-1.3); Blood Urea Nitrogen 5 mg/dL (7-17); Calcium 8.2 mg/dL (8.4-10.2); Carbon Dioxide 29 mmol/L (22-30); Chloride 98 mmol/L (98-107); Estimated CRCL calculation 79 ml/min; Estimated Glomerular Filt Rate > 60; Glucose 218 mg/dL (65-110); Magnesium 1.9 mg/dL (1.6-2.3); Potassium 3.1 mmol/L (3.4-5.0); Sodium 133 mmol/L (137-145)
[2022-02-14 10:05] VITALS: BMI 25.4
--- NOTE | 2022-02-14 10:12 | ADMGEN ---
This patient, Minerva Umana, was admitted to [facility] Surg Room 307-01 at 0725. Patient/family oriented to hospital policies and general routines including ID bracelet, bed and alarms, visiting hours, pain management, procedures, bathroom and other care routines, personal items, smoking policy, room service/diet, and visiting hours. Information on how to activate the Rapid Response Team has been discussed. Patient/Family are encouraged to report perceived risks to care and to ask questions if they do not understand what they are told or what they should do.
[2022-02-14 13:32] VITALS: BMI 25.4
[2022-02-14 14:00] VITALS: BP 113/77; PULSE 76; RESP 19; TEMP 35.3; O2SAT 97
--- NOTE | 2022-02-14 14:58 | WPDGICN ---
Assessment and Plan Assessment and plan (1) Ulcerative colitis: Code(s): K51.90 - Ulcerative colitis, unspecified, without complications Status: Acute Assessment and Plan: Patient with new diagnosis of ulcerative colitis in December of 2021. Currently doing poorly with outpatient management. She has ongoing severe watery diarrhea. She has had intermittent ongoing rectal bleeding. She has had some modest improvement on oral steroids supplemented with mesalamine. Because of ongoing diarrhea with started on the addition of antibiotics and is transitioning to biologic therapy when insurance coverage can be obtained. Plan is for patient be started on IV Solu-Medrol 40 mg IV every 6 hours. We will continue mesalamine. Stool cultures will be obtained. In the interim we will continue the ciprofloxacin that was started 3 days ago. Patient will be allowed to have diet as tolerated. However initially starting with soft diet is encouraged. Advancing as tolerated. GI Consult Note Consult date/time: 02/14/22 14:58 Reason for consult: Exacerbation of ulcerative colitis. HPI: Minerva Umana is a 46 year old female I am asked to see at the request of the Emergency Room. Patient initially diagnosed with ulcerative colitis in December of this year by Dr. Fuller after a colonoscopy. The colonoscopy was performed because of bloody diarrhea. Patient subsequently has been maintained on mesalamine and prednisone. She initially did well on her follow up in the office. However upon tapering her dose of prednisone has had an exacerbation of diarrhea and occasional blood in stools. Blood is described as bright red blood. The diarrhea is relatively constant watery stools. She denies any localized abdominal pain. Patient currently on 20 mg of prednisone daily it had been taper down to [id number] daily when the exacerbation occurred period over the last 3 days she was started on ciprofloxacin empirically. Patient additionally is on mesalamine. In the outpatient setting patient is being evaluated for possible implementation of Stelara as a biologic for long-term management. Patient presented to the emergency room today for further evaluation and was admitted for IV steroids and control of her current diarrhea, exacerbation of ulcerative colitis. Review of Systems Review of Systems: Review of systems noncontributory. [facility] Past Medical History Medical History (Updated 02/14/22 @ 15:02 by Eliazar Glynn MD) H/O radioactive iodine thyroid ablation Tear of meniscus of left knee Ulcerative colitis (~11/2021) Surgical History Surgical History (Updated 02/14/22 @ 06:23 by Yu Bobby DO) Abnormal colonoscopy (12/22/21) History of section Family History Family History Father Diabetes mellitus Hypertension Family history of elevated blood lipids Grandparent Diabetes mellitus Hypertension Family history of cardiovascular disease Cerebrovascular accident Malignant neoplasm of prostate Mother Hypertension Family history of elevated blood lipids Social History Social History Social History: She lives in [place] with her of 20 years. 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 She has 3 children ages 25, 19 and 17. She used to smoke socially in small to moderate amounts but quit smoking in her early 30s. She denies any significant alcohol use. She denies any illicit substance use. Code status: Full code Surrogate decision maker: Smoking status: Former smoker Tobacco type: cigarettes Second hand tobacco smoke exposure: Yes Smoking end date: 09/03/06 Alcohol intake: never Substance use: never Substance use type: does not use Spiritual care concerns: No Meds Home Medications and Allergies Home Medications Medication Ins
--- NOTE | 2022-02-14 15:46 | PM.IMHP ---
H&P: HPI History of Present Illness Date/Time: 02/14/22 15:46 Chief Complaint: abdominal pain Narrative: ED-HPI Narrative: Patient is a 46-year-old female who presents ER with fever.? Reports she had a temperature of 101.3 ?F tonight.? Patient was recently diagnosed with ulcerative colitis.? She has had persistent diarrhea with intermittent bleeding.? She has been taking prednisone and mesalamine.? She sees Dr. Fuller as her GI doctor.? She had a fever last week.? The nurse practitioner in the GI office recommend that she come to the ER should she have recurrent fever.? This happened tonight.? Patient has been taking ciprofloxacin to help treat infection.? Previous biopsy showed cryptic abscesses. today patient is abdominal pain little better with Cipro and Solu-Medrol 40 mg every 6 hours started by her GI, patient states currently sees in process of getting approval for biological treatment from her insurance company this will further improve her symptoms and condition patient seen by GI started the patient on clear liquid, will gently hydrate the patient and patient remains clinically stable will continue to monitor patient admitted as observation status Review of Systems Review of Systems: Review of systems noncontributory. [facility] Past Medical History Medical History (Updated 02/14/22 @ 15:02 by Eliazar Glynn MD) H/O radioactive iodine thyroid ablation Tear of meniscus of left knee Ulcerative colitis (~11/2021) Surgical History Surgical History (Updated 02/14/22 @ 06:23 by Yu Bobby DO) Abnormal colonoscopy (12/22/21) History of section Family History Family History Father Diabetes mellitus Hypertension Family history of elevated blood lipids Grandparent Diabetes mellitus Hypertension Family history of cardiovascular disease Cerebrovascular accident Malignant neoplasm of prostate Mother Hypertension Family history of elevated blood lipids Social History Social History Social History: She lives in [place] with her of 20 years. 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 She has 3 children ages 25, 19 and 17. She used to smoke socially in small to moderate amounts but quit smoking in her early 30s. She denies any significant alcohol use. She denies any illicit substance use. Code status: Full code Surrogate decision maker: Smoking status: Former smoker Tobacco type: cigarettes Second hand tobacco smoke exposure: Yes Smoking end date: 09/03/06 Alcohol intake: never Substance use: never Substance use type: does not use Spiritual care concerns: No Meds Home Medications and Allergies Home Medications Medication Instructions Recorded Confirmed Type mesalamine 400 mg capsule (with 800 mg PO TID 1 month #180 ea 12/24/21 02/14/22 Rx delayed release tablets inside) (Delzicol) fjmcfapv-sde-iogr-FA-Ca carb-vit K 1 tablet PO DAILY 12/28/21 02/14/22 History 18 mg iron-400 mcg-500 mg tablet (One-A-Day Womens Formula) ciprofloxacin HCl 500 mg tablet 500 mg PO Q12H 10 days #20 tabs 02/10/22 02/14/22 Rx calcium 500 mg tablet 500 mg PO DAILY 02/14/22 02/14/22 History cholecalciferol (vitamin D3) 25 25 mcg PO DAILY 02/14/22 02/14/22 History mcg (1,000 unit) tablet (Vitamin D3) prednisone 5 mg tablet 25 mg PO DAILY 02/14/22 02/14/22 History Allergies Allergy/AdvReac Type Severity Reaction Status Date / Time Sulfa (Sulfonamide Allergy Unknown Itching Verified 02/14/22 02:01 Antibiotics) Vital Signs Vital Signs - 24 hr 02/14/22 01:14 02/14/22 02:00 02/14/22 03:40 Temperature 99.3 F Pulse Rate 100 80 Respiratory Rate 16 16 Blood Pressure 126/67 119/79 Pulse Oximetry 97 99 Oxygen Delivery Room Air Room Air 02/14/22 05:29 02/14/22 07:27 02/14/22 12:00 Temperature Pul
[2022-02-14] MEDS: MESALAMINE 400 MG DELAYED RELEASE CAPSULE 800 MG PO (17:03)
[2022-02-14 19:49] LABS: Toxigenic C. Diff NEGATIVE (NEGATIVE)
[2022-02-14 21:38] VITALS: BP 126/71; PULSE 75; RESP 18; TEMP 36.6; O2SAT 98
[2022-02-15 05:39] VITALS: BP 112/69; PULSE 52; RESP 18; TEMP 36.7; O2SAT 97
[2022-02-15 06:15] LABS: Hematocrit 33.6 % (37.0-47.0); Hemoglobin 10.3 g/dL (12.0-15.0); Mean Corpuscular HGB Conc 30.7 g/dl (32-36); Mean Corpuscular Hemoglobin 27.2 pg (26-34); Mean Corpuscular Volume 88.7 fl (80-100); Mean Platelet Volume 8.8 fl (7.4-10.4); Platelet Count Result 434 k/mm3 (150-375); Red Blood Count 3.79 M/mm3 (4.2-5.4); Red Cell Distribution Width 13.7 % (11.5-14.5); White Blood Count 14.9 K/mm3 (4.5-10.0)
[2022-02-15] MEDS: CIPROFLOXACIN 400 MG/D5W 200ML 200 ML 200 MG IVPB (06:18)
[2022-02-15] MEDS: methylPREDNISolone SOD SUCC 40 MG VIAL IV PUSH (06:18)
[2022-02-15 06:41] LABS: Alanine Aminotransferase 14 U/L (6-35); Albumin Level 3.4 g/dL (3.5-5.1); Alkaline Phosphatase 70 U/L (38-126); Anion Gap 2 mmol/L (8-16); Aspartate Amino Transferase 23 U/L (14-36); Bilirubin,Total < 0.1 mg/dL (0.2-1.3); Blood Urea Nitrogen 5 mg/dL (7-17); Calcium 8.3 mg/dL (8.4-10.2); Carbon Dioxide 32 mmol/L (22-30); Chloride 103 mmol/L (98-107); Estimated CRCL calculation 89 ml/min; Estimated Glomerular Filt Rate > 60; Glucose 142 mg/dL (65-110); Magnesium 2.2 mg/dL (1.6-2.3); Potassium 3.9 mmol/L (3.4-5.0); Sodium 137 mmol/L (137-145)
--- NOTE | 2022-02-15 07:57 | WPDGIPROGNO ---
Progress Note: A&P Assessment and Plan (1) Ulcerative colitis: Code(s): K51.90 - Ulcerative colitis, unspecified, without complications Status: Acute Assessment and Plan: Patient with ulcerative pancolitis. Currently doing well on intravenous medications. Her diarrhea and bleeding noted at time of admission have abated. At the present time we will plan to change to oral medications. We will start her on prednisone 40 mg p.o. daily and anticipate tapering by 5 mg weekly however she should remain at a 20 mg a day dose when this is achieved. We will have her complete a 10 day course of Cipro because she has had a fever also because of the anti-inflammatory effect of this medication. We will also continue mesalamine as previously span prescribed as an outpatient. Patient should follow up in the GI office within [address] Fuller. It is anticipated that she will be started on Stelara when insurance issues can be resolved. This is being obtained through a specialty pharmacy. Patient may advance to a regular diet. Discharge today if others agree. Subjective Date/time seen: 02/15/22 07:57 Patient alert comfortable this morning. She reports no additional bleeding per rectum. She has had some soft stools that were easily controlled. Denies overt diarrhea at this time. She has no abdominal pain. Currently tolerating low fiber diet without difficulty. Review of Systems Review of Systems: Review of systems noncontributory. Exam Narrative: Physical exam reveals patient to be alert. Vital signs stable. HEENT exam is unremarkable. Patient is anicteric. Lungs are clear. Heart without murmur. Abdomen bowel sounds present soft nontender with no organomegaly. Objective Data Vital Signs Vital Signs: Vital Signs - 24 hr 02/14/22 12:00 02/14/22 14:00 02/14/22 20:00 Temperature 95.6 F L Pulse Rate 76 Respiratory Rate 19 Blood Pressure 113/77 Pulse Oximetry 97 Oxygen Delivery Room Air Room Air 02/14/22 21:38 02/15/22 05:39 Temperature 97.9 F 98.0 F Pulse Rate 75 52 L Respiratory Rate 18 18 Blood Pressure 126/71 112/69 Pulse Oximetry 98 97 Oxygen Delivery Intake/Output Intake/Output: Intake & Output 02/12/22 02/13/22 02/14/22 02/15/22 23:59 23:59 23:59 23:59 Intake Total 2860 550 Output Total 100 Balance 2860 450 Meds/Results Medications: Active Medications Generic Name Dose Route Start Last Admin Trade Name Freq PRN Reason Stop Dose Admin Calcium Carbonate 500 mg 02/15/22 09:00 Calcium Carbonate (Oscal) 500 Mg Tablet PO 03/17/22 08:59 DAILY [facility] Ciprofloxacin/Dextrose 200 mls @ 200 mls/hr 02/14/22 19:00 02/15/22 06:18 Cipro 400 Mg/D5w 200 Ml IVPB 200 mls/hr Q12H LUIS Administration Mesalamine 800 mg 02/14/22 17:00 02/14/22 17:03 Mesalamine 400 Mg Delayed Release Capsule PO 800 mg TID LUIS Administration Methylprednisolone Sodium Succinate 40 mg 02/14/22 12:00 02/15/22 06:18 Methylprednisolone Sod Succ 40 Mg Vial IV PUSH 40 mg Q6HR [facility] Administration Morphine Sulfate 4 mg 02/14/22 06:21 Morphine Sulfate (*Crx) 4 Mg/Ml Inj IV PUSH Q2H PRN Pain Rated 7-10 Multivitamins/Calcium 1 tablet 02/15/22 09:00 Therapeutic Multivitamins/Minerals Tab (*Bkc) PO DAILY [facility] Ondansetron HCl 4 mg 02/14/22 06:21 Ondansetron Inj 4 Mg/2 Ml Vial IV PUSH Q4H PRN Nausea Vitamin D 1,000 units 02/15/22 09:00 Cholecalciferol 1,000 Units Tablet PO DAILY [facility] Radiology Results: ITS Impressions Abdomen/Pelvis CT 02/14/22 07:02 IMPRESSION: Diffuse colon wall thickening or pericolic fat stranding, suggesting colitis; probable reactive right lower quadrant and mesenteric lymphadenopathy Normal appendix Minimal nonobstructive right nephrolithiasis Hepatic steatosis Chest X-Ray 02/14/22 07:19 IMPRESSION: Minimal discoid atelectasis or scarring in the lower lung
[2022-02-15] MEDS: MESALAMINE 400 MG DELAYED RELEASE CAPSULE 800 MG PO (08:41)
[2022-02-15] MEDS: THERAPEUTIC MULTIVITAMINS/MINERALS TAB (*BKC) 1 TABLET PO (08:42)
[2022-02-15] MEDS: CHOLECALCIFEROL 1,000 UNITS TABLET 1000 UNITS PO (08:42)
[2022-02-15] MEDS: CALCIUM CARBONATE (OSCAL) 500 MG TABLET PO (08:42)
--- NOTE | 2022-02-15 11:00 | PM.DS ---
DS: Admitting Diagnosis Discharge Date 02/16/2022 Admitting Diagnosis abdominal pain DS: Discharge Diagnosis Discharge Diagnosis (1) Ulcerative colitis: Code(s): K51.90 - Ulcerative colitis, unspecified, without complications Status: Acute Assessment and Plan: ED-HPI Narrative: Patient is a 46-year-old female who presents ER with fever.? Reports she had a temperature of 101.3 ?F tonight.? Patient was recently diagnosed with ulcerative colitis.? She has had persistent diarrhea with intermittent bleeding.? She has been taking prednisone and mesalamine.? She sees Dr. Fuller as her GI doctor.? She had a fever last week.? The nurse practitioner in the GI office recommend that she come to the ER should she have recurrent fever.? This happened tonight.? Patient has been taking ciprofloxacin to help treat infection.? Previous biopsy showed cryptic abscesses. today patient is abdominal pain little better with Cipro and Solu-Medrol 40 mg every 6 hours started by her GI, patient states currently sees in process of getting approval for biological treatment from her insurance company this will further improve her symptoms and condition patient seen by GI started the patient on clear liquid, will gently hydrate the patient and patient remains clinically stable will continue to monitor (2) Acute hypokalemia: Code(s): E87.6 - Hypokalemia Status: Acute Assessment and Plan: hypokalemia most likely secondary to poor p.o. intake and absorption due to ulcerative colitis, will monitor and supplement DS: Summary Hospital Course Reason for hospitalization: ED-HPI Narrative: Patient is a 46-year-old female who presents ER with fever.? Reports she had a temperature of 101.3 ?F tonight.? Patient was recently diagnosed with ulcerative colitis.? She has had persistent diarrhea with intermittent bleeding.? She has been taking prednisone and mesalamine.? She sees Dr. Fuller as her GI doctor.? She had a fever last week.? The nurse practitioner in the GI office recommend that she come to the ER should she have recurrent fever.? This happened tonight.? Patient has been taking ciprofloxacin to help treat infection.? Previous biopsy showed cryptic abscesses. ?today patient is abdominal pain little better with Cipro and Solu-Medrol 40 mg every 6 hours started by her GI,? patient states currently sees in process of getting approval for biological treatment from her insurance company this will further improve her symptoms and condition? patient seen by GI started the patient on clear liquid, will gently hydrate the patient and patient remains clinically stable will continue to monitor Hospital Course: patient with ulcer to colitis being treated with Cipro and Solu-Medrol, patient was seen by GI and switch over to oral medication, today patient is feeling much better abdominal pain nausea vomiting have resolved, GI is okay to discharge the patient home today with a tapering dose of prednisone 40 mg daily and taper 5 mg per week, thereafter 20 mg q.day, patient is also being considered for biological treatment pending insurance approval, patient will receive Cipro for total of 10 day, patient will follow-up with [facility] doctor Time Spent with Patient Time attestation: Total time spent providing and/or coordinating discharge services: Exam Narrative: Patient is comfortable, NAD HEENT: eyes are clear and none icteric LUNGS: normal respiratory efforts ABD: not distended Lower extremities: no edema SKIN: nonjaundiced Neuro: grossly intact. DS: Data Data Completed and Pending Labs on day of discharge: Labs from last 24 hours 02/15/22 02/15/22 02/14/22 05:57 05:57 17:07 WBC 14.9 H RBC 3.79 L Hgb 10.3 L Hct 33.6 L MCV 88.7 MCH 27.2 MCHC 30.7 L RDW 13.7 Plt Count 434 H MPV 8.8 Sodium 137 Potassium 3.9 Chloride 103 Carbon Dioxide 32 H Anion Gap 2 L BUN 5 L C
== END 2022-02-15 11:58 | disposition home or self-care (01) ==
LOC: ANHED 06:35 → ANH3MEDSUR 02-15 09:17
PROVIDERS: Internal Medicine Gastroenterology; Admitting Provider Internal Medicine; Emergency Provider Emergency Medicine; PCP Family Medicine; Visit Provider Family Medicine
DX: K51.90 Ulcerative colitis, unspecified, without complications (principal); E87.6 Hypokalemia; Z87.891 Personal history of nicotine dependence; Z20.822 Contact with and (suspected) exposure to COVID-19
CPT/HCPCS: 36415; 71046; 74176; 80053; 81001; 81025; 83605; 83735; 85025; 85027; 87045; 87086; 87088; 87177; 87209; 87269; 87272; 87427; 87493; 89055; 96361; 96365; 96374; 96375; 96376; 99285; A9270; C9803; G0378; J0744; J2920; J7030; U0003; U0005

== ENCOUNTER 2023-07-17 10:33 | Outpatient (CLI) | payer BC, SELFPAY ==
--- NOTE | ~2023-07-17 | US_ITS ---
Duplex Sonography of the bilateral lower extremities: Indication: Swelling Sagittal and transverse B-mode images as well as color-flow imaging were performed on the right and l eft femoral and popliteal veins. B-mode examination was done without and with compression in the tra nsverse plane. There is good visualization of the bilateral common femoral, proximal profunda femora l, superficial femoral, greater saphenous, and popliteal veins. Normal flow was seen on color-flow im aging. Normal compressibility was demonstrated. Visualized calf veins are also patent. Impression: No evidence of deep vein thrombosis involving either lower extremity. Reviewed, dictated and finalized at location [facility]. [employer] Impression: No evidence of deep vein thrombosis involving either lower extremit y.
== END 2023-07-17 10:34 | disposition home or self-care (01) ==
PROVIDERS: PCP Family Medicine; Visit Provider Internal Medicine Gastroenterology
DX: K51.90 Ulcerative colitis, unspecified, without complications (principal)
CPT/HCPCS: 93970

== ENCOUNTER 2023-11-28 08:51 | Outpatient (CLI) | payer BC, SELFPAY ==
--- NOTE | ~2023-11-28 | MR_ITS ---
EXAMINATION: MR MRCP wo/w con/w 3D wo ind DATE: 11/28/2023 09:55 INDICATION: Abnormal levels of other serum enzymes TECHNIQUE: Magnetic resonance imaging (MRI) of the abdomen was performed without and with 18 mL Multi samaria intravenous contrast. Sequences included coronal T2-weighted SS-FSE, coronal T2-weighted FS SS- FSE, coronal T2-weighted FS FIESTA, axial T2-weighted FS FIESTA, axial T2-weighted FIESTA, sagittal T 2-weighted SS-FSE, axial T1-weighted dual-echo FSPGR, axial T2-weighted SS-FSE, axial T1-weighted LAV A, axial T2-weighted STIR FSE. Thick-slab T2-weighted FRFSE-XL images were obtained for magnetic reso nance cholangiopancreatography (MRCP). Rotating maximum intensity projection 3-D reconstructions of t he volumetric data were created by the technologist. Postcontrast sequences included a time course of axial T1-weighted LAVA. COMPARISON: CT dated 02/14/2022 FINDINGS: ABDOMEN MRI: Heart size is normal. No pericardial or pleural effusion. Diffuse hepatic steatosis. Gallbladder, gillespie creas, bilateral adrenal glands and kidneys are normal. 1.1 cm T2 hyperintense nonenhancing splenic c yst. Visualized portion of the bowels are unremarkable. No pathologically enlarged abdominal or upper pelvic lymphadenopathy. 5.6 cm low signal intensity fibroid at the anterior uterine fundus which exe rts mass effect upon the dome of the underlying bladder. Mild lumbar levocurvature with mild to moder ate spondylosis. ABDOMEN MRCP: No intra or extra hepatic biliary ductal dilation. The common bile duct measures up to 2-3 mm in maxi mal diameter which is normal. No evident choledocholithiasis. The main pancreatic duct is also normal in caliber measuring up to 2 mm maximal diameter at the head and neck of the pancreas. IMPRESSION: 1. Diffuse hepatic steatosis. No cholelithiasis/choledocholithiasis or acute intra-axial hepatic bili leo ductal dilation. 2. 5.6 cm uterine fibroid. Reviewed, dictated and finalized at location A. IMPRESSION: 1. Diffuse hepatic steatosis. No cholelithiasis/choledocholithiasis or acute in tra-axial hepatic biliary ductal dilation. 2. 5.6 cm uterine fibroid.
== END 2023-11-28 08:52 | disposition home or self-care (01) ==
PROVIDERS: Visit Provider Internal Medicine Gastroenterology
DX: R74.8 Abnormal levels of other serum enzymes (principal); D25.9 Leiomyoma of uterus, unspecified
CPT/HCPCS: 74183; 76376; A9577

== ENCOUNTER 2024-02-26 12:12 | Outpatient (CLI) | payer BC, SELFPAY ==
--- NOTE | ~2024-02-26 | MM_ITS ---
EXAMINATION: MM screening viola BI w edil HISTORY: Screening mammogram TECHNIQUE: Craniocaudal and mediolateral oblique 3-D tomosynthesis images were obtained and synthetic 2-D images were generated. CAD analysis was submitted and interpreted. COMPARISON: No prior mammogram is available for comparison at this institution. BREAST PARENCHYMAL COMPOSITION:Not Dense. There are scattered areas of fibroglandular density. FINDINGS: No suspicious mass, calcification, or architectural distortion are identified in either maribell ast to suggest malignancy. There has been no suspicious interval change. IMPRESSION: No mammographic evidence of malignancy. Recommend routine screening mammography in one year. BI-RADS Category 1: Negative Reviewed, dictated and finalized at location .
== END 2024-02-26 12:13 ==
PROVIDERS: PCP Obstetrics & Gynecology; Visit Provider Physician Assistant Medical
DX: Z12.31 Encounter for screening mammogram for malignant neoplasm of breast (principal)
CPT/HCPCS: 77063; 77067

== ENCOUNTER 2024-03-30 10:22 | Emergency (ER) | payer BC, SELFPAY ==
--- NOTE | ~2024-03-30 | XR_ITS ---
XR femur LT min 2V DATE: 03/30/2024 10:45 INDICATION: Fall. Left leg injury, pain TECHNIQUE: AP and lateral views of left femur COMPARISON: None FINDINGS: No fracture or dislocation, periosteal reaction or bone destruction is detected. Normal ali gnment at the left hip and knee joints. IMPRESSION: Negative Reviewed, dictated and finalized at location J. IMPRESSION: Negative
[2024-03-30 10:23] VITALS: BP 119/90; PULSE 82; RESP 17; TEMP 36.6; O2SAT 99
--- NOTE | 2024-03-30 10:35 | ED.LOWEXIN ---
HPI - Extremity Injury (Lower) General Chief Complaint: Extremity Injury, Lower Stated Complaint: thigh pain Time Seen by Provider: 03/30/24 10:24 Source: patient, EMS, RN notes reviewed and old records reviewed Mode of arrival: EMS Limitations: no limitations History of Present Illness HPI Narrative: This is a 48 year old female with history of ulcerative colitis and left meniscus injury who presents for evaluation of left posterior thigh injury. PAtient states she was runny away from a hornet's nest and this caused her to slip and fall. When she fell, her left leg slid from under her causing her to do the splits. She is having pain to left posterior thigh with movement. She was unable to bear weight so she called 911. complaint: thigh injury Related Data Home Medications Medication Instructions Recorded Confirmed fbwfaabk-qgf-aupb-FA-Ca carb-vit K 1 tablet PO DAILY 12/28/21 05/31/23 18 mg iron-400 mcg-500 mg tablet (One-A-Day Womens Formula) Allergies Allergy/AdvReac Type Severity Reaction Status Date / Time Sulfa (Sulfonamide Allergy Unknown Itching Verified 03/30/24 10:28 Antibiotics) Review of Systems Constitutional: Constitutional: Denies weakness Cardiovascular: Cardiovascular: Denies syncope, Denies rapid heart rate, Denies irregular heart rhythm, Denies leg edema and Denies dyspnea Respiratory: Respiratory: Denies chest congestion, Denies hemoptysis, Denies excessive phlegm production and Denies dyspnea Gastrointestinal: Gastrointestinal: Denies abdominal pain, Denies hematochezia, Denies diarrhea and Denies vomiting Genitourinary: Genitourinary: Denies hematuria and Denies dysuria Musculoskeletal: Musculoskeletal: Denies joint swelling, Denies loss of height and Denies muscle weakness Neurologic: Denies syncope, Denies focal weakness and Denies weakness PMFSH Past Medical History Medical History Elevated liver enzymes H/O radioactive iodine thyroid ablation Iron deficiency anemia Leg edema Tear of meniscus of left knee Ulcerative colitis (~11/2021) Surgical History Surgical History Abnormal colonoscopy (12/22/21) History of section Family History Family History Father Diabetes mellitus Hypertension Family history of elevated blood lipids Grandparent Diabetes mellitus Hypertension Family history of cardiovascular disease Cerebrovascular accident Malignant neoplasm of prostate Mother Hypertension Family history of elevated blood lipids Social History Social History Social History: She lives in [place] with her of 20 years. 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 She has 3 children ages 25, 19 and 17. She used to smoke socially in small to moderate amounts but quit smoking in her early 30s. She denies any significant alcohol use. She denies any illicit substance use. Code status: Full code Surrogate decision maker: Years smoked: 7 Smoking status: Former smoker Tobacco type: cigarettes Second hand tobacco smoke exposure: Yes Smoking end date: 09/03/06 Alcohol intake: never Substance use: never Substance use type: does not use Spiritual care concerns: No Exam Const: General: no acute distress and alert Nutritional Appearance: well nourished Orientation/consciousness: patient oriented x3 HENMT: Head: normal to inspection Eyes: EOM: EOMs intact bilaterally Resp: Effort & Inspection: normal respiratory effort Skin: General skin exam: normal color Rashes: no rashes Wounds: no wounds Neuro: General: patient oriented x3, moves all extremities and CN's II-XI intact bilaterally Extrem: General: no pedal edema Other: ttp to left hamstring, patient will left leg flexed at knee and hip
[2024-03-30] MEDS: diazePAM (*CRX) 5 MG TABLET PO (11:15)
[2024-03-30] MEDS: ACETAMINOPHEN 500 MG TABLET 1000 MG PO (11:18)
[2024-03-30 11:24] VITALS: BP 157/87; PULSE 78; RESP 14; O2SAT 99
== END 2024-03-30 12:22 | disposition home or self-care (01) ==
PROVIDERS: Emergency Provider General Practice; PCP Family Medicine
DX: S76.302A Unspecified injury of muscle, fascia and tendon of the posterior muscle group at thigh level, left thigh, initial encounter (principal); D64.9 Anemia, unspecified; W01.0XXA Fall on same level from slipping, tripping and stumbling without subsequent striking against object, initial encounter
CPT/HCPCS: 73552; 99283; A9270

== ENCOUNTER 2025-02-16 01:53 | Day surgery (SDC) | payer BC, SELFPAY ==
[2025-02-02 15:21] VITALS: BMI 27.0
--- OUTSIDE RECORDS SUMMARY | 2025-02-16 01:56 | XMS_ITS | Data Portability ---
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 Her knees bother her about the same she rates them at about 6/10 ER bothers her I think be best for her to give a bowling as bone is likely to continue to aggravate her knees. Weight loss may be helpful I would recommend that she try decrease her daily caloric intake a little bit try and lose some weight. She was given handout relating calories to weight loss for her review. I think a course of physical therapy may be very helpful for her and she would like to pursue that. She cannot take nonsteroidal anti-inflammatory medications because of the ulcerative colitis currently. We talked about the option of cortisone shot. She is at increased risk for infection as a complication of cortisone shots and she is on a medication that inhibit see immune system, Rinvoq. This does not mean she cannot have a cortisone shot but means that cortisone shot would have a little bit higher risk now of infection complication. She will try the physical therapy I will see her back in 6 weeks assess her progress. 30 minutes were spent in total care this patient more than half the time spent in [id number]-[facility] care. [email or web address] Not available 07/08/2023 19:14:24 Plan of Treatment Reminders Order Date Submit Date Provider Last Modified By Organization Details Last Modified Time Details Appointments None record ed. Lab None record ed. Referral None record ed. Procedures None record ed. Surgeries None record ed. Imaging XR, knee 023 06/27/20 23 [email or web address] [facility], [address], [address], 3 09:52:08 Medication Orders None record ed. Patient TargetsNo targets recorded. Patient InstructionsNo instructions recorded. Reason for Referral None Reported. Results Created Date Observation Date Name Description Value Unit Range Abnormal Flag Note LastModifiedBy Organization Detail LastModifiedTime 11/10/1911/09/2021 XR, knee No observ ation record ed. [id number] [facility] [address], [address], 11/01/2022 22:05:57 06/27/20 XR, knee No observ ation record ed. [email or web address] [facility] [address], [address], 07/08/2023 19:10:52 Result Notes None recorded. Problems Name Problem SNOMED Code Status Onset Date Resolution Date Notes Provider Name and Address Organization Details Recorded Time custodial current use of non-steroi giacomo anti-infla mmatory drug 1239398136114 03 Active 2019 Not Available [facility] 3 22:04:51 Pain of right knee joint 0581336048675 00 Active 2021 Not Available [facility] 3 22:04:52 Pain of left knee joint 8276279353126 07 Active 2021 Not Available [facility] 3 22:04:52 Pain of bilateral knee joints 9263017686322 04 Active 2022 CINDI Hussein [facility] [employer] [facility] 3 09:24:37 Problem Notes None recorded. Procedures Surgical History Date Name Laterality Status Provider Name and Address Organization Details Recorded Time section completed Not Available [facility] 11/01/2022 22:04:23 Imaging Results None recorded. Procedure Notes None recorded. Medical Equipment None Reported. Allergies Allergen ID Allergen Name Allergen Category Reaction Reaction Severity Criticality Documentation Date Start Date Code Code System Note Provider Name and Address Organization Details Recorded Time 50898 Substance with sulfonami de structure and antibacte rial mechanism of action (substanc e) medicatio n Not available Not available Not available 11/01/2022 23228 8003 SNOMED Not Available [facility] 22:05:51 Medications Name Sig Start Date Stop Date Status Note LastModified by Organization Details LastModified Time prednisone 10 mg tablet 06/27 completed Not Available Not Available Not Available meloxicam 15 mg tablet Take 1 tablet every day by oral route. 06/27 completed Not Available Not Available Not Available metronidazo le 500 mg tablet TAKE 1 TABLET BY MOUTH EVERY 8 HOURS FOR 10 DAYS active Not Available Not Available No t Available diclofenac sodium 50 mg tablet,onel yed release 04/01 completed Not Available Not Available Not Available budesonide DR - ER 3 mg capsule,del ayed,extend ed release TAKE 2 CAPSULES BY MOUTH DAILY active Not Available Not Available No t Available mesalamine 400 mg capsule (with delayed release tablets inside) TAKE 2 CAPSULES BY MOUTH THREE TIMES DAILY active Not Available Not Available No t Available Paxlovid 300 mg (150 mg x 2)-100 mg tablets in a dose pack TK 2 NIRMATREL VIR TS AND 1 RITONAVIR T TOGETHER PO BID FOR 5 DAYS TWICE DAILY FOR 5 DAYS active Not Available Not Available No t Available Rinvoq 30 mg tablet,exte nded release active Not Available Not Available Not Available Vitals Date Recorded Body mass index (BMI) Body height Body weight Provider Name and Address Organization Details Last Updated DateTime 11/09/2021 29 kg/m2 172.72 cm 59857.14 g Not Available [facility] 11/01/2022 22:04:36 Date Recorded Body height Body mass index (BMI) Body weight Provider Name and Address Organization Details Last Updated DateTime 06/27/2023 175.26 cm 29.8 kg/m2 73473.66 g Kim [facility] [employer] [facility] 06/27/2023 09:27:35 Social History None recorded. Functional Status Question Answer Note LastModified by Organizat ion Details LastModified Time What is your level of alcohol consumption? Occasional [id number] Information not available 11/01/2022 Mental Status None recorded. Family History Relationship Description Onset Age of this Age Resolved Age Notes LastModified by Organization Details LastModified Time Paternal Grandmother Family history of stroke [id number] Not available 11/01/2022 22:04:24 Father Hypertensive disorder [id number] Not available 11/01/2022 22:04:24 Father Diabetes mellitus [id number] Not available 11/01/2022 22:04:24 Mother Hypertensive disorder [id number] Not available 11/01/2022 22:04:24 Maternal Grandfather Heart disease [email or web address] Not available 2022 09:22:31 Medical History Condition Response BLINDNESS N KIDNEY STONES N MRSA N CARPAL TUNNEL SYNDROME N LUNG DISEASE/DISORDER N HISTORY OF DRUG ABUSE N COPD N RADIATION / CHEMOTHERAPY N SPORTS INJURY N ANKLE PAIN N BLOOD DISEASES N SCHIZOPHRENIA N SHINGLES N BOWEL PROBLEMS N SHOULDER PAIN N DEPRESSION (INCLUDING POST ) N STROKE/TIA N ULCERS N KNEE PAIN N BENIGN PROSTATIC HYPERPLASIA N OBESITY N GERD/NAUSEA N ANEURYSM N URINARY/BLADDER/KIDNEY PROBLEMS N CORONARY ARTERY DISEASE (CAD) N ADDICTION CONCERNS N USE OF BLOOD THINNERS N SKIN PROBLEMS N EMPHYSEMA N MUSCLE,JOINT OR BONE PROBLEMS N DVT N STOMACH ULCERS N BLOOD CLOTS N USE OF NSAIDS N CONCUSSION OR SPINAL TRAUMA N NEUROPATHY N AIDS/HIV N FRACTURES N ELBOW PAIN N HYPERTENSION N TOURETTE'S N ANXIETY DISORDER N Metal allergy N BLOOD TRANSFUSION N ANEMIA/BLOOD DISORDER Y BIPOLAR DISORDER N BRONCHITIS N OSTEOARTHRITIS N TUBERCULOSIS N FOOT PROBLEM N HEART VALVE DISORDERS N ALLERGIES/HAYFEVER N SOFT TISSUE INJURY N INFECTIOUS DISEASE N HEART ARRHYTHMIA N INSOMNIA N RHEUMATOID ARTHRITIS N HIGH CHOLESTEROL / HYPERLIPIDEMIA N EDEMA N CHRONIC PAIN SYNDROME N CAROTID BLOCKAGE N BACK / NECK PROBLEMS N HAVE YOU BEEN HOSPITALIZED OR SEEN IN [facility] IN THE PAST YEAR ? N BURSITIS N HERNIATED DISC N DIALYSIS N FIBROMYALGIA N OSTEOPOROSIS N ARTHRITIS Y NO SIGNIFICANT PAST MEDICAL HISTORY N PERIPHERAL NEUROPATHY N DIABETES, TYPE N HEARTBURN / REFLUX N HEPATITIS / LIVER DISEASE N GOUT N SLEEP DISORDER N ALZHEIMER'S DISEASE N HERPES N SEIZURES/EPILEPSY N HEADACHES/MIGRAINES N VASCULAR DISEASE N HIP PAIN N Blood Disorder N DIZZINESS N HEAD TRAUMA OR INJURY N HEART DISEASE/HEART PROBLEMS N MULTIPLE SCLEROSIS N CARDIAC ARRHYTHMIA N CANCER: SPECIFY N ANESTHESIA COMPLICATIONS N ATRIAL FIBRILLATION N AUTOIMMUNE DISEASE N Gynecological HistoryNo gynecological history recorded. Obstetrics History GPAL:G 0 P 0 0 0 0 Past Encounters Encounter ID Performer Location Encounter Start Date Encounter Closed Date Diagnosis/Indication Diagnosis SNOMED-CT Code Diagnosis ICD10 Code Diagnosis Note [id number] Elfego Mcclain MD [facility] [address] [place] [address] 11/09/2021 00:00:00 12/11/2021 17:24:19 [id number] Elfego Mcclain MD [facility] [address] [place] [address] 06/27/2023 08:46:21 07/09/2023 09:52:08 Pain of bilateral knee joints 5251775563 42349 M25.561 M25.562 Health Concerns Section Related Observation LastModified by Organization Detai ls LastModified Time None Recorded Concern Status LastModified by Organization Details LastModified Time None Recorded Advance Directives Directive None Recorded Payers Insurance Date Sequence Insurance Name Policy Number Policy Mcnamara Covered Member ID Mcnamara Member ID Guarantor Name 06/04/2023 1 [facility] [id number] Minerva Crum [id number] Minerva Crum 08/10/2023 1 [facility] (O) [id number] Dori Crum [id number] Minerva Crum Notes Date Note Type Note Provider Name and Address Organization Details Recorded Time 06/27/2023 text/html patient returns. She presents today for evaluation of her right knee. We last saw her in November of 2021 for posterior root tear of the lateral meniscus of the left knee with lateral compartment osteoarthritis moderate severity. She went bowling 3 and half weeks ago. She was fine prior to this and she recalls while bowling she felt a pop in a mild shooting pain laterally and posteriorly then she rested and after she rested she could hardly bear weight on the right knee and she has been limping ever since. She has tried a brace. She complains of severe start-up limp. Patient was hospitalized last year for ulcerative colitis , twice, and as such she cannot take nonsteroidal anti-inflammatory medications. She notes that she lost 25 lb 1 year ago. Steroid use for the ulcer colitis caused a fair amount of weight gain. Patient's current medications include mesalamine and Rinvoq which is a JAK2 inhibitor that does affect the main system. She has been taking this 1 tablet per day for the last 3 months. Elfego Mcclain MD [address] [place] [address], [place] [address], [place], [address], [place] - [facility] 07/08/2023 19:14:38 OBGyn Episode No OBEpisode recorded.
--- OUTSIDE RECORDS SUMMARY | 2025-02-16 01:56 | XMS_ITS | Data Portability ---
Author Organization [facility] [place] Address [address] [place] [address] [place] [address] Care Team Providers Care Crm Manager Name Role Phone VALENTINA ARTEAGA Primary Care Provider [phone] Assessment Encounter Date Assessment Date Assessment LastModified by Organization Details LastModified Time 01/16/2024 01/16/2024 Annual gynecological exam performed. Patient will come back in a year unless there are new symptoms. [place] [id number] Not available 01/16/2024 15:53:27 01/23/2024 01/23/2024 Annual gynecological exam performed. Patient will come back in a year unless there are new symptoms. [facility] Not available 01/23/2024 10:51:50 Plan of Treatment Reminders Order Date Submit Date Provider Last Modified By Organization Details Last Modified Time Details Appointments None recorded. Lab None recorded. Referral None recorded. Procedures None recorded. Surgeries None recorded. Imaging MAMMO, screening, digital, bilateral [address] [facility], [address] [place] [address] [address], [place], [address], 4 05:01:04 US, pelvis 2023 024 [email or web address] [place], [facility] [address], [place], [address], 4 21:01:04 US, transvagina l 2023 024 [email or web address] [place], [address], [address], [place], [address], 4 21:01:04 US, pelvis, complete 2023 024 MALIK Maier, [address], [address], [place], [address], 4 05:01:27 Medication Orders Loestrin Fe 09/22 (28-Day) 1 mg-20 mcg (21)/75 mg (7) tablet 2023 024 MALIK [id number], [address] [facility], [place], [place], [id number], 4 16:51:39 Patient TargetsNo targets recorded. Patient InstructionsNo instructions recorded. Reason for Referral None Reported. Results Created Date Observation Date Name Description Value Unit Range Abnormal Flag Note LastModifiedBy Organization Detail LastModifiedTime 09/13/19 22 09/13/2021 IMAGE GUIDE D PAP AND HPV REGAR DLESS image guided Pap, HPV regardless of Pap result SEE RESULT S BELOW CASE REPOR T: Cytol ogy Gynec ologi brenda Repor t Case: [id number] [employer] [place] Provi fuad: Viola Soni CNM Colle cted: 09/13 1658 Order ing Locat ion: [place] Patho log[facility] Recei barry: 09/14 0020 First Scree n: Sue Hudson , CT Rescr een: Yanet Otto Speci men: Scree jevon Pap - Image d, Cervi x STATE MENT OF ADEQU ACY: Satis facto ry for evalu ation Trans forma tion zone compo nent prese nt FINAL DIAGN OSIS: Negat alex for Intra epith rusty du or Alin yun (NIL) . Elect karthikeyan watkins alen d by Yanet Otto on 2021 at 1:49 PM ----- ----- ----- ----- ----- ----- ----- ----- ----- ----- ----- ----- ----- ----- ----- ----- ----- ---- HPV RESUL TS: HPV mRNA E6/E7 : No HPV mRNA Detec nadege NOTE: This high risk HPV mRNA assay detec ts fourt een high- risk HPV types (16, 18, 31, 33, 35, 39, 45, 51, 52, 56, 58, 59, 66, 68) witho ut diffe renti ation . COMME NT: Note: This speci men was revie wed by a Cytot echno logis t and/o r Patho logis t (as indic ated in this repor t) after evalu ation using the Thinp rep Imagi ng Syste m. CLINI BRENDA INFOR MATIO N: Menst rual Statu s: LMP (if appli cable ): Clini brenda Histo ry/Pr eviou s Pap: Type of Neopl demian (if appli cable ): Signi fican t Clini brenda Findi ngs: Other Histo ry: Hormo andria (if appli cable ): PAP EDUCA CONCHITA L NOTE: The Pap Test is a scree jevon test with an inher ent false negat alex rate. Liqui d-bas ed sampl ing may decre ase, but will not elimi bertha, false negat alex resul ts. A negat alex resul t does not precl ude the prese nce and/o r devel opmen t of disea se, since the prese nce of abnor mal cells in the sampl e depen ds on the locat ion of the lesio n and sampl ing techn ique. Thierry nued regul ar scree jevon is the best metho d of cance r preve ntion . If repor nadege cytol ogic findi ng do not corre late with physi brenda and/o r histo rical findi ngs, furth er inves tigat ion is recom argentina d, as clini nisreen olivares nted. Not Available [facility] (Lab) [address], [place], [address], 09/19/2021 14:50:54 05/22/01/23/2024 IMAGE GUIDE D PAP AND HPV REGAR DLESS image guided Pap, HPV regardless of Pap result SEE RESULT S BELOW CASE REPOR T: Cytol ogy Gynec ologi brenda Repor t Case: [id number] [employer] [place] [place] Provi fuad: Ale Garcia NP Colle cted: 01/22 1654 Order ing Locat ion: [place] Patho logy Recei barry: 01/23 0253 First Jasmyn n: Huma Almanza , CT Speci men: Jasmyn escoto Pap - Image d, Cervi x STATE MENT OF ADEQU ACY: Satis facto ry for evalu ation Trans forma tion zone compo nent prese nt ----- ----- ----- ----- ----- ----- ----- ----- ----- ----- ----- ----- ----- ----- ----- ----- ----- ---- FINAL DIAGN OSIS: Negat alex for Intra epith elial Mariusz du or Alin yun (NIL) . Elect karthikeyan menjivar by Huma Almanza , CT on 2023 at 10:47 AM ----- ----- ----- ----- ----- ----- ----- ----- ----- ----- ----- ----- ----- ----- ----- ----- ----- ---- HPV RESUL TS: HPV mRNA E6/E7 : No HPV mRNA Detec nadege NOTE: This high risk HPV mRNA assay detec ts fourt een high- risk HPV types (16, 18, 31, 33, 35, 39, 45, 51, 52, 56, 58, 59, 66, 68) witho ut diffe renti ation . COMME NT: This speci men was revie wed by a Cytot echno logis t and/o r Patho logis t (as indic ated in this repor t) after evalu ation using the Thinp rep Imagi ng Syste m. CLINI BRENDA INFOR MATIO N: Menst rual Statu s: LMP (if appli cable ): Clini brenda Histo ry/Pr eviou s Pap: Type of Neopl demian (if appli cable ): Signi fican t Clini brenda Findi ngs: Other Histo ry: Hormo andria (if appli cable ): PAP EDUCA CONCHITA L NOTE: The Pap Test is a scree jevon test with an inher ent false negat alex rate. Liqui d-bas ed sampl ing may decre ase, but will not elimi bertha, false negat alex resul ts. A negat alex resul t does not precl ude the prese nce and/o r devel opmen t of disea se, since the prese nce of abnor mal cells in the sampl e depen ds on the locat ion of the lesio n and sampl ing techn ique. Thierry nued regul ar scree jevon is the best metho d of cance r preve ntion . If repor nadege cytol ogic findi ng do not corre late with physi brenda and/o r histo rical findi ngs, furth er inves tigat ion is recom argentina d, as clini nisreen olivares nted. Not Available [facility] (Lab) [address], [place], [address], 01/29/2024 11:51:47 09/15/19 22 09/15/2021 US, pelvi s No observ ation record ed. [email or web address] [place] [address], [place], [address], 09/15/2021 18:01:56 09/15/19 22 09/15/2021 US, jaz bull No observ ation record ed. [email or web address] [place] [address], [place], [address], 09/15/2021 18:02:06 09/15/19 22 09/15/2021 US, pelvi s No observ ation record ed. shira [place] [address], [place], [address], 09/19/2021 18:01:43 01/21/20 24 01/21/2024 US, pelvi s No observ ation record ed. [email or web address] [place] [address], [place], [address], 01/21/2024 18:13:40 01/21/20 24 01/21/2024 US, trans vagin al No observ ation record ed. [email or web address] [place] [address], [place], [address], 01/21/2024 18:13:30 01/21/20 24 01/21/2024 US, pelvi s No observ ation record ed. MALIK [address], [place], [address], 01/22/2024 15:47:52 02/26/20 24 02/26/2024 MAMMO , scree jevon, bilat eral No observ ation record ed. [facility] [address], [place], [address], 02/26/2024 16:57:24 03/30/20 24 03/30/2024 XR, ankle No observ ation record ed. [email or web address] [facility] [address], [place], [address], 03/31/2024 11:05:51 Result Notes Documentation Provider Name and Address Organization Details Recorded Time Mammo, Screening, Bilateral : Mammogram Mammogram Right: normal Left: normal MIMI BRYANT MD [address], [place], [address], [facility] 02/26/2024 16:38:32 Problems Name Problem SNOMED Code Status Onset Date Resolution Date Notes Provider Name and Address Organization Details Recorded Time Screenin g for malignan t neoplasm of rectum Completed 201709/13/2021 Encounte r for screenin g for malignan t neoplasm of rectum;P ractice ID: [id number] Brittaney amaya [facility] 2 16:36:[address] Concept Completed 201609/13/2021 Anxiety disorder , unspecif ied;Kolby rded Elsewher e: No Locat ion: [facility] S ource: EHR Robotic Technician riki: N Practi ce ID: 0001 Justin lable Time: 03:30:00 PM Brittaney amaya [facility] 2 16:36:29 Screenin g for malignan t neoplasm of cervix Completed 201109/13/2021 Screenin g for malignan t neoplasm s of the cervix;R ecorded Elsewher e: No Locat ion: [facility] S ource: EHR Robotic Technician riki: N Practi ce ID: 0001 Justin lable Time: 08:45:00 AM Brittaney amaya [facility] 2 16:36:33 Speciali zed medical examinat ion Completed 201409/13/2021 Gynecolo gical Examinat ion;Kolby rded Elsewher e: No Locat ion: [facility] S ource: EHR Robotic Technician riki: N Practi ce ID: 0001 Justin lable Time: 11:15:00 AM Brittaney amaya [facility] 2 16:36:43 Backache [id number] Completed 201409/13/2021 Back pain;Rec orded Elsewher e: No Locat ion: [facility] S ource: EHR Robotic Technician riki: N Practi ce ID: 0001 Justin lable Time: 11:15:00 AM Brittaney amaya [facility] 2 16:36:[address] Concept Completed 201709/13/2021 Encntr for phone manager exam (general ) (routine ) w/o abn findings ;Recorde d Elsewher e: No Locat ion: [facility] S ource: EHR Robotic Technician riki: N Practi ce ID: 0001 Justin lable Time: 03:45:00 PM [facility] 16:36:41 Body mass index 25-29 - overweig ht [id number] Completed 201609/13/2021 Body mass index (BMI) 26.0-26. 9, adult;Re corded Elsewher e: No Locat ion: [facility] S ource: EHR Robotic Technician riki: N Practi ce ID: 0001 Justin lable Time: 03:30:00 PM Brittaney Rosales [facility] 2 16:36:32 Polyp of cervix [id number] Completed 201609/13/2021 Polyp of cervix;R ecorded Elsewher e: No Locat ion: [facility] S ource: EHR Robotic Technician riki: N Practi ce ID: 0001 Justin lable Time: 03:30:00 PM Brittaney Rosales [facility] 2 16:36:45 Uses combined oral contrace ption [id number] Completed 201709/13/2021 Encounte r for initial prescrip tion of contrace ptive pills;Re corded Elsewher e: No Locat ion: [facility] S ource: EHR Robotic Technician riki: N Practi ce ID: 0001 Justin lable Time: 03:45:00 PM Brittaney Rosales [facility] 2 16:36:36 Human papillom a virus screenin g Completed 201609/13/2021 Encounte r for screenin g for human papillom avirus (HPV);Re corded Elsewher e: No Locat ion: [facility] S ource: EHR Robotic Technician riki: N Practi ce ID: 0001 Justin lable Time: 03:30:00 PM Brittaney amaya [facility] 2 16:37:05 Female genital organ symptoms [id number] Completed 201109/13/2021 Unspecif ied symptom associat ed with female genital organs;R ecorded Elsewher e: No Locat ion: [facility] S ource: EHR Robotic Technician riki: N Practi ce ID: 0001 Justin lable Time: 08:45:00 AM Brittaney Rosales [facility] 2 16:36:35 Adult health examinat ion Completed 201409/13/2021 ROUTINE MEDICAL EXAM;Rec orded Elsewher e: No Locat ion: [facility] S ource: EHR Robotic Technician riki: N Carmitati ce ID: 0001 Justin lable Time: 11:15:00 AM [facility] 16:36:37 Problem Notes None recorded. Procedures Surgical History Date Name Laterality Status Provider Name and Address Organization Details Recorded Time 12/03/19 Date of Last Colonoscopy completed [facility] 01/16/2024 15:56:05 09/03/19 22 Colonoscopy completed [facility] 01/23/2024 16:27:17 11/24/19 05 Caesarean Section completed [facility] 09/13/2021 16:46:39 Imaging Results None recorded. Procedure Notes None recorded. Medical Equipment None Reported. Allergies Allergen ID Allergen Name Allergen Category Reaction Reaction Severity Criticality Documentation Date Start Date Code Code System Note Provider Name and Address Organization Details Recorded Time 85262 Substance with sulfonami de structure and antibacte rial mechanism of action (substanc e) medicatio n Not available Not available Not available 08/20/2020 09327 8003 SN[facility]ED [facility] 16:36:20 Medications Name Sig Start Date Stop Date Status Note LastModified by Organization Details LastModified Time prednison e 10 mg tablet 01/15 completed Not Available Not Available Not Available meloxicam 15 mg tablet take 1 tablet (15MG) by oral route every day 09/13 completed Not Available Not Available Not Available Diflucan 150 mg tablet take 1 tablet by oral route once 03/13 completed Prescrib ed Elsewher e: No [facility]at [facility] odify By: lesly Rutledge r DateTime : 02/13/20 10:01:57 AM Not Available Not Available Not Available metronida zole 500 mg tablet TAKE 1 TABLET BY MOUTH EVERY 8 HOURS FOR 10 DAYS 01/15 completed Not Available Not Available Not Available citalopra m 20 mg tablet take 1 tablet (20MG) by oral route every day 03/13 completed Prescrib ed Elsewher e: No Locat ion: [facility] odify By: lesly Rutledge r DateTime : 04/24/20 08:45:00 AM Not Available Not Available Not Available oseltamiv ir 75 mg capsule TAKE 1 CAPSULE BY MOUTH TWICE DAILY FOR 5 DAYS 01/15 completed Not Available Not Available Not Available Paxil 10 mg tablet take 1 tablet by oral route every day 04/24 completed Prescrib ed Elsewher e: No Locat ion: [facility] odify By: ceci serrano DateTime : 04/24/20 03:30:00 PM Not Available Not Available Not Available Ortho Tri-Cycle n (28) 0.18 mg(7)/0.2 15mg(7)/0 .25 mg(7)-0.0 35 mg tablet take 1 tablet by oral route every day 03/13 completed Prescrib ed Elsewher e: No Locat ion: [facility] odify By: lesly Rutledge r DateTime : 02/10/20 11:15:00 AM Not Available Not Available Not Available meloxicam 7.5 mg/5 mL oral suspensio n take 5 millilit er by oral route every day 09/13 completed Prescrib ed Elsewher e: Yes Loca tion: [facility] M odify By: lesly flores DateTime : 06/19/20 03:45:00 PM Not Available Not Available Not Available Lo Loestrin Fe 1 mg-10 mcg (24)/10 mcg (2) tablet take 1 tablet by oral route every day 09/13 completed Prescrib ed Elsewher e: No^Stop Date: 20210405 Locatio n: [facility] saavedra [facility] M odify By: ceci serrano DateTime : 06/19/20 03:45:00 PM Not Available Not Available Not Available Blisovi Fe 09/22 (28) 1 mg-20 mcg (21)/75 mg (7) tablet TAKE 1 TABLET BY MOUTH EVERY DAY active Not Available Not Available No t Available mesalamin e 400 mg capsule (with delayed release tablets inside) TAKE 2 CAPSULES BY MOUTH THREE TIMES DAILY active Not Available Not Available No t Available Rinvoq 30 mg tablet,ex tended release active Not Available Not Available Not Available Vitals Date Recorded Body height Body mass index (BMI) Body weight Systolic blood pressure Diastolic blood pressure Provider Name and Address Organization Details Last Updated DateTime 09/30/2021 170.18 cm 30.1 kg/m2 34258.74 g 132 mm[Hg] 76 mm[Hg] Tiffany Khalil [facility] 2 16:51:44 Date Recorded Body height Body mass index (BMI) Body weight Systolic blood pressure Diastolic blood pressure Provider Name and Address Organization Details Last Updated DateTime 01/16/2024 170.18 cm 32 kg/m2 59005.84 g 134 mm[Hg] 82 mm[Hg] [facility] 4 15:51:52 Date Recorded Body height Body mass index (BMI) Body weight Systolic blood pressure Diastolic blood pressure Provider Name and Address Organization Details Last Updated DateTime 01/23/2024 170.18 cm 31.8 kg/m2 60590.25 g 120 mm[Hg] 78 mm[Hg] Tracey [facility] 4 16:26:10 Date Recorded Body height Body mass index (BMI) Body weight Systolic blood pressure Diastolic blood pressure Provider Name and Address Organization Details Last Updated DateTime 02/11/2024 170.18 cm 31.2 kg/m2 38673.88 g 129 mm[Hg] 79 mm[Hg] Jagruti Carvajal [facility] 4 16:21:32 Social History Question Answer Notes LastModified by Organizat ion Details LastModified Time Tobacco Smoking Status Never Smoker Puneet Curtis monique, [facility] 09/15/2021 16:44:24 Do You Have An Advance Directive? No [email or web address] Information n ot available 09/13/2021 Are You Blind Or Do You Have Difficulty Seeing? No [email or web address] Information n ot available 09/13/2021 What Is Your Level Of Caffeine Consumption? Heavy Information not available 09/13/2021 How Much Tobacco Do You Chew? None [email or web address] Information not available 09/13/2021 In The 14 Days Before Symptom Onset, Have You Had Close Contact With A Laboratory-confirm ed COVID-19 While That Case Was Ill? No [email or web address] Information n ot available 09/13/2021 In The 14 Days Before Symptom Onset, Have You Had Close Contact With A Person Who Is Under Investigation For COVID-19 While That Person Was Ill? No [email or web address] Information not available 09/13/2021 Have You Been To An Area Known To Be High Risk For COVID-19? No Information not available 09/13/2021 Are You Deaf Or Do You Have Serious Difficulty Hearing? No [email or web address] Information not available 09/13/2021 What Type Of Diet Are You Following? REGULAR [email or web address] Information n ot available 09/13/2021 What Is The Highest Grade Or Level Of School You Have Completed Or The Highest Degree You Have Received? [id number] Information not available 09/13/2021 Are There Any Guns Present In Your Home? Yes Information not available 09/13/2021 Do You Use Protection During Sex? Usually [email or web address] Information not available 09/13/2021 Do You Use Your Seat Belt Or Car Seat Routinely? Yes [email or web address] Information not available 09/13/2021 Do You Have Smoke And Carbon Monoxide Detectors In Your Home? Yes [email or web address] Information not available 09/13/2021 How Much Tobacco Do You Smoke? No [email or web address] Information not available 09/13/2021 Do You Use Sunscreen Routinely? Yes Information not available 09/13/2021 Have You Used IV Drugs? No [email or web address] Information not available 09/13/2021 Sex: Unknown Functional Status Question Answer Note LastModified by Organizat ion Details LastModified Time Do you use any illicit or recreational drugs? No [email or web address] Information not available 09/13/2021 What is your level of alcohol consumption? Occasional [email or web address] Information not available 09/13/2021 Are you able to walk? [email or web address] Information not available 09/13/2021 What is your occupation? [employer] [email or web address] Information not available 09/13/2021 What is your exercise level? Occasional Information not available 09/13/2021 Mental Status Question Answer Note LastModified by Organization D etails LastModified Time Do you feel stressed (tense, restless, nervous, or anxious, or unable to sleep at night)? [id number] [email or web address] Information not available 09/13/2021 Family History Relationship Description Onset Age of this Age Resolved Age Notes LastModified by Organization Details LastModified Time Maternal Grandmother Hypertensive disorder [email or web address] Not available 2021 16:51:48 Maternal Grandmother Hypertensive disorder [email or web address] Not available 2021 16:51:48 Father Hypertensive disorder [email or web address] Not available 2021 16:51:48 Father Diabetes mellitus [email or web address] Not available 2021 16:51:48 Father Diabetes mellitus [email or web address] Not available 2021 16:51:48 Father Hypertensive disorder [email or web address] Not available 2021 16:51:48 Mother Hypertensive disorder [email or web address] Not available 2021 16:51:48 Mother Hypertensive disorder [email or web address] Not available 2021 16:51:48 Maternal Grandfather Heart disease [email or web address] Not available 2021 16:51:48 Maternal Grandfather Heart disease [email or web address] Not available 2021 16:51:48 Paternal Grandmother Diabetes mellitus [email or web address] Not available 2021 16:51:48 Paternal Grandmother Diabetes mellitus [email or web address] Not available 2021 16:51:48 Paternal Uncle Heart disease [email or web address] Not available 2021 16:51:48 Paternal Uncle Heart disease [email or web address] Not available 2021 16:51:48 Medical History Condition Response Arthritis Y Polyps Y Hepatitis/Liver Disease Y Thyroid Problems Y GI Problems Y Gynecological History Statement/Question Response Date of Last Mammogram Flow Moderate Date of LMP 01/16/2024 N Was last menstrual period normal Y STIs/STDs N Date of Last Colonoscopy 12/02/2021 Desired Control Method None Abnormal Pap N On BCP's at Conception? N HPV Vaccine N Colposcopy Duration of Flow (days) 5 Current Control Method None Age at First Child 20 Are cycles usually normal Y Frequency of Cycle (Q days) 24 Sexually Active? N Menses Monthly Y Date of DEXA bone scan Age of first menstrual cycle 11 Date of Last Pap Smear Sexual Problems? N LMP Approximate N Obstetrics History GPAL:G 3 P 3 0 0 3 Type Value Full Term 3 Living 3 Total 3 Past Encounters Encounter ID Performer Location Encounter Start Date Encounter Closed Date Diagnosis/Indication Diagnosis SNOMED-CT Code Diagnosis ICD10 Code Diagnosis Note [id number] Viola Bonilla CNM [place] [address] [address] 09/13/2021 16:27:17 09/13/2021 17:57:55 Gynecologic examination 12735111 Z01.419 Z11.51 Suggested Calcium with Vitamin D 1200-1500m g daily. Patient advised to get an annual flu shot in the fall and she could obtain at [facility] or [facility] take care clinic. Also to obtain TDap vaccinatio n if you have not had one in the last 10 years. Recommend yearly mammograms . Encouraged monthly self breast exams. Order given for mammogram. Encourage safe sexual practices, to use condoms and limit partners if not already in a monogamous relationsh ip. Engage in daily exercise of low impact aerobic exercise 45-60 minutes 4-5 times weekly. Avoid tobacco and illicit drugs as well as using moderation with alcohol intake less than 1-2 8 oz beverages daily. This lifestyle behavior pattern will lead to less health conditions and longer life span. If BMI greater than 25 weight watchers or dietary consult advised. All questions have been answered. Patient appears to understand informatio n, but if you have any questions please call or respond to this email. Jesi [id number] N 94.0 OTC medication s helps. Discussed options to help with discomfort and pt would like to try ocp to prevent the discomfort . She does not have any medical condition that is contraindi cated with the use of estrogen containing control. Pt will start her pills on the first Sunday following the start of her period. She is aware it is not effective for control the first month. She is also aware of the importance of taking at the same time every day. Encouraged use of condoms as the pill does not protect against STD's. Will return in 3 months for med check. Consent was read and signed. Pt verbalized understand ing. Enlarged uterus [id number] 4 N85.2 U/S. Will await results. [id number] Camilo Poon MD [place] [address],[facility] [place] [address] 09/15/2021 16:43:08 09/15/2021 17:16:51 Enlarged uterus [id number] N85.2 [id number] Camilo Poon MD [place] [address],[facility] [place] [address] 09/30/2021 16:43:53 10/03/2021 12:54:41 Uterine leiomyoma 88513315 D25.9 45-year-ol d female who presents for ultrasound follow-up. She has a 4 have cm fibroid of the myometrium . It is adjacent to the endometria l cavity. It does D endometria l cavity. We reviewed the results together. I explained Uterine fibroids to the patient. We spent 25 minutes face-to-fa ce. We discussed treatment options in detail. She may have some symptoms associated with the mass effect of the fibroid on the bladder. She does have some urgency and frequency. the patient may not require any treatment. She feels that her symptoms may only have a mild effect on her quality of life activities daily living. She is going to consider things that we discussed. She may request treatment. [id number] TOM Cheung [place] [address] [address] 01/16/2024 15:47:16 01/17/2024 11:34:09 Pain in pelvis [id number] R10.2 This patient is a 48 -year-old female with pelvic pain. We have agreed to complete the evaluation with pelvic ultrasound . The patient will return after the pelvic ultrasound to discuss those findings and to develop a treatment plan. A comprehens alex history and physical exam was performed today. We spent over 25 minutes face-to-fa ce. The patient was given precaution s. She will contact clinic if pelvic pain increases in frequency or intensity. Also notify clinic of any new symptoms associated with pelvic pain. She does not appear to have an acute pelvic infection today, but was asked to contact us Immediatel y with nausea, vomiting, fever, chills. pelvic u/s ordereddec lined STI screenwill reach out to pt with u/s results and discuss recommenda tions Uterine leiomyoma [id number] D25.9 Weight gain [id number] R63. 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 She has a 4 have cm fibroid of the myometrium . It is adjacent to the endometria l cavity. It does D endometria l cavity. We reviewed the results together. I explained Uterine fibroids to the patient. We spent 25 minutes face-to-fa ce. We discussed treatment options in detail. She may have some symptoms associated with the mass effect of the fibroid on the bladder. She does have some urgency and frequency. the patient may not require any treatment. She feels that her symptoms may only have a mild effect on her quality of life activities daily living. She is going to consider things that we discussed. She may request treatment. [id number] TOM Cheung [place] [address] [address] 01/23/2024 16:21:38 01/23/2024 17:22:47 Gynecologic examination [id number] Z01.419 WWEpap updateddec lined STI screenmamm ogram order givencolon oscopy UTDroutine labs UTD/PCP Suggested Calcium with Vitamin D daily. Patient advised to get an annual flu shot in the fall and she could obtain at [facility] or [facility] take care clinic. Also to obtain TDap vaccinatio n if you have not had one in the last 10 years. Recommend yearly mammograms . Encouraged monthly self breast exams. Encourage safe sexual practices, to use condoms and limit partners if not already in a monogamous relationsh ip. Engage in regular exercise. Avoid tobacco and illicit drugs. This lifestyle behavior pattern will lead to less health conditions and longer life span. If BMI greater than 25 dietary consult advised. All questions have been answered. Patient appears to understand informatio n, but if you have any questions please call or respond to this email. Screening for malignant neoplasm of breast [id number] Z12.39 [id number] MIMI BRYANT MD [place] [address] [address] 02/11/2024 15:36:34 02/11/2024 17:12:15 Uterine leiomyoma [id number] D25.9 - 5.5cm fundal fibroid on US, slightly increased from 2021- irregular episodes of pelvic discomfort , not interferin g with normal activity- discussed expectant management with repeat US in 6-12 months vs medical management with lupron vs surgical management with myomectomy vs hysterecto my- would like to proceed with repeat US in 6-12 months unless symptoms worsen Contracept ion care management [id number] Z30.9 - no contraindi cations to OCPs Health Concerns Section Related Observation LastModified by Organization Detai ls LastModified Time None Recorded Concern Status LastModified by Organization Details LastModified Time None Recorded Advance Directives Directive N: Payers Insurance Date Sequence Insurance Name Policy Number Policy Mcnamara Covered Member ID Mcnamara Member ID Guarantor Name 02/08/2024 1 KWAN GREWAL (PPO) [id number] Zeinab Crum [id number] Minerva Crum 09/13/2021 1 [facility] [id number] Aixa Crum [id number] Minerva Crum 01/15/2024 1 [facility] [id number] Aixa Curm [id number] Minerva Crum Notes Date Note Type Note Provider Name and Address Organization Details Recorded Time 09/30/2021 text/html 45-year-old femzeinab garcia who presents for ultrasound follow-up. She has a 4 have cm fibroid of the myometrium. It is adjacent to the endometrial cavity. It does D endometrial cavity. We reviewed the results together. I explained Uterine fibroids to the patient. We spent 25 minutes [id number]. We discussed treatment options in detail. She may have some symptoms associated with the mass effect of the fibroid on the bladder. She does have some urgency and frequency. the patient may not require any treatment. She feels that her symptoms may only have a mild effect on her quality of life activities daily living. She is going to consider things that we discussed. She may request treatment. Camilo Poon MD [address], [place], [address], [facility] 09/30/2021 21:35:40 01/16/2024 text/html 48yo [id number] ents for evaluation of pelvic painlower pelvic pressure/discomfort for the past 2-3 yrs. Comes and goes, worse before and during her periods. Has fibroids as noted on u/s done in 2021.Monthly periods, LMP 01/16/2024not currently SAhas been unable to loose weight, has osteoarthritis which makes exercise difficult, her GI issues have limited what kind of foods she can eat neg urinary symptomsoften has irregular bowel movementneg n/v/fneg flu-like symptoms TOM Cheung [address], [place], [address], [facility] 01/17/2024 10:02:29 01/23/2024 text/html Annual GYNReport ed bypatient.Menstrual cycle:Severe dysmenorrhea Urinary symptoms:No hematuria; No incontinence Vulva:No genital lesion Vagina:Normal vaginal discharge Breast:No breast pain; No breast lump; No nipple discharge Current Contraception:Satisf ied with current contraception Sexual complaints:No sexual complaints; No pain during intercourse; Normal libido Menopausal Symptoms:No menopausal symptoms; Normal vaginal lubrication Psychological symptoms:No depression; No anxiety; No PMDD Preventive measures:Encourage self breast examination; Encourage regular exercise; Encourage no tobacco use; Encourage regular mammograms starting age 40Notes:48yo [id number] pap 09/2021: nilm, HPV (-)not currently SAhas not had a mammogram yet. Mammogram scheduled for Junecolonoscopy last outine labs UTD/PCP lower pelvic pressure/discomfort for the past 2-3 yrs. Comes and goes, worse before and during her periods. Has fibroids, has consult coming up with Dr. Henry Garcia, [facility] [address], [place], [address], [facility] 01/23/2024 16:50:07 02/11/2024 text/html Patient presents to discuss pelvic discomfort, occurs mostly prior to starting period. It has been happening for a few years now. Would like to start OCPs. Has been on in the past. Having mostly regular periods, however has had some prolonged cycles. Rare hot flashes. MIMI BRYANT MD [address], [place], [address], [facility] 02/11/2024 17:05:39 OBGyn Episode Ob Episode Information Episode Created Date Number of Fetuses Patient Bloodtype Patient rh Status Prepregnancy Weight lbs Domestic Partner Domestic Partner Phone Father Name Land Title Examiner Status 09/13/19 22 1 CLOSED Fetus Data First Name Last Name Admitted to NICU Weight (g) Sex Living Outcome Pediatric Complications Fetus ID Race Codes Race Delivery Type 4053.75 1704 Full Term [id number] Vaginal Delivery Eric Calculation Initial Eric Date Initial Exam Date Initial Exam Provider Initial Ultrasound Date Last Menstrual Period Date Ultra Sound Weeks Gestation 0 Eighteen To Twenty Week Eric Update Ultra Sound Date Fundal Height At Umbil Quickening Date Ultra Sound Latest Weeks Gestation Final Eric Confirmed By Final Eric Confirmed Date Final Eric Date Ultra Sound Latest Days Gestation 0 0 Menstrual History Last Menstrual Date Menses Monthly On Bcp Conception Prior Menses Frequency Hcg Plus Date Menarche Onset Age Delivery Information Delivery Date Delivery Type Labor Anesthesia Weeks Gestation Incision Type Labor Labor Length Hrs Delivered By Post Complications Tubal Sterilization Discharge Date Comments 6 40 Discharge Information Feeding Method Contraceptive Method Maternal HG B and HCT Levels Ob Episode Information Episode Created Date Number of Fetuses Patient Bloodtype Patient rh Status Prepregnancy Weight lbs Domestic Partner Domestic Partner Phone Father Name Land Title Examiner Status 09/13/19 22 1 CLOSED Fetus Data First Name Last Name Admitted to NICU Weight (g) Sex Living Outcome Pediatric Complications Fetus ID Race Codes Race Delivery Type 3798.83 3 Full Term [id number] Vaginal Delivery Eric Calculation Initial Eric Date Initial Exam Date Initial Exam Provider Initial Ultrasound Date Last Menstrual Period Date Ultra Sound Weeks Gestation 0 Eighteen To Twenty Week Eric Update Ultra Sound Date Fundal Height At Umbil Quickening Date Ultra Sound Latest Weeks Gestation Final Eric Confirmed By Final Eric Confirmed Date Final Eric Date Ultra Sound Latest Days Gestation 0 0 Menstrual History Last Menstrual Date Menses Monthly On Bcp Conception Prior Menses Frequency Hcg Plus Date Menarche Onset Age Delivery Information Delivery Date Delivery Type Labor Anesthesia Weeks Gestation Incision Type Labor Labor Length Hrs Delivered By Post Complications Tubal Sterilization Discharge Date Comments 3 39 Discharge Information Feeding Method Contraceptive Method Maternal HG B and HCT Levels Ob Episode Information Episode Created Date Number of Fetuses Patient Bloodtype Patient rh Status Prepregnancy Weight lbs Domestic Partner Domestic Partner Phone Father Name Land Title Examiner Status 09/13/19 22 1 CLOSED Fetus Data First Name Last Name Admitted to NICU Weight (g) Sex Living Outcome Pediatric Complications Fetus ID Race Codes Race Delivery Type 3345.24 1 Full Term [id number] Primary Eric Calculation Initial Eric Date Initial Exam Date Initial Exam Provider Initial Ultrasound Date Last Menstrual Period Date Ultra Sound Weeks Gestation 0 Eighteen To Twenty Week Eric Update Ultra Sound Date Fundal Height At Umbil Quickening Date Ultra Sound Latest Weeks Gestation Final Eric Confirmed By Final Eric Confirmed Date Final Eric Date Ultra Sound Latest Days Gestation 0 0 Menstrual History Last Menstrual Date Menses Monthly On Bcp Conception Prior Menses Frequency Hcg Plus Date Menarche Onset Age Delivery Information Delivery Date Delivery Type Labor Anesthesia Weeks Gestation Incision Type Labor Labor Length Hrs Delivered By Post Complications Tubal Sterilization Discharge Date Comments 5 37 Discharge Information Feeding Method Contraceptive Method Maternal HG B and HCT Levels
--- OUTSIDE RECORDS SUMMARY | 2025-02-16 01:56 | XMS_ITS | Clinical Summary ---
Author Organization [facility] Address [address] [place] [address] Care Team Providers Care Mechanical Design Drafter Name Role Phone Unavailable Primary Care Provider Unavailabl e Source Comments [facility],non-owned Affiliates and Associated Physician Practices is amultiple site organization consisting of ambulatory clinics and hospital sitesin [place], [place], [place] and [place]. This disclosure is being madepursuant to the Care Everywhere program and may not contain all information available regarding this patient. Last updated 18.[facility] [employer] Allergies No known active allergies Immunizations Immunization Administration Dates Next Due INFLUENZA VACCINE, QUADR. (F LUZONE; FLULAVAL; FLUARIX; AFLURIA QUADRIVALENT; 6MO+), 0.5 ML (IIV4) 07/05/2021 Social History Tobacco Use Types Packs/Day Years Used Date Smoking Tobacco: Never Assessed Comments Unknown Sex and Gender Information Value Date Recorded Sex Assigned at Not on file Legal Sex Female 6:28 AM BEATER LEAD Gender Identity Not on file Sexual Orientation Not on file Plan of Treatment Health Maintenance Due Date Last Done Comments COLOGUARD (AGES 45-75) - COL ON CA SCREENING 1974 COLON MONITORING 1974 COLONOSCOPY - COLON CA SCREENING 1974 CT COLONOGRAPHY - COLON CA SCREENING 1974 Colorectal Cancer Screening 1974 FIT - COLON CA SCREENING 1974 FLEX SIG - COLON CA SCREENING 1974 LIPID TESTING 1974 MAMMOGRAM 1974 HIV SCREENING 1989 HEPATITIS C SCREENING 11/13/1992 DTAP/TDAP/TD VACCINES (1 - Tdap) 1993 HEPATITIS B VACCINE (1 of 3 - 19+ 3-dose series) 1993 COVID-19 VACCINE (1 - 2023-2 5 season) 2024 DEPRESSION SCREENING 09/03/2024 PNEUMOCOCCAL VACCINE 50+ (1 of 1 - PCV) 2024 ZOSTER VACCINE (1 of 2) 2024 INFLUENZA VACCINE (Season Ended) 2025 07/05/20 21 HIB VACCINE Aged Out No longer eligi ble based on patient's age to complete this topic HPV VACCINE Aged Out No longer eligi ble based on patient's age to complete this topic MENINGOCOCCAL (Group B) VACC INE SHARED DECISION-MAKING Aged Out No longer eligibl e based on patient's age to complete this topic MENINGOCOCCAL GROUPS A/C/Y/W VACCINE Aged Out No longer eligible b ased on patient's age to complete this topic Insurance
--- OUTSIDE RECORDS SUMMARY | 2025-02-16 01:56 | XMS_ITS | Clinical Summary ---
Author Organization [facility] Address [address] [place] [id number] Care Team Providers Care Fiber Technologist Name Role Phone Stephanie Bone MD Primary Care Provider [phone] Allergies Active Allergy Reactions Criticality Noted Date Comments Sulfa Antibiotics Itching 12/09/2021 Social History Tobacco Use Types Packs/Day Years Used Date Smoking Tobacco: Never Smokeless Tobacco: Never Alcohol Use Standard Drinks/Week Comments Never 0 (1 standard drink = 0.6 oz pur e alcohol) Comments No Sex and Gender Information Value Date Recorded Sex Assigned at Not on file Legal Sex Female 8:27 AM CDT Gender Identity Not on file Sexual Orientation Not on file Last Filed Vital Signs Vital Sign Reading Time Taken Comments Blood Pressure 150/84 12/09/2021 10:41 AM CDT Pulse 90 12/09/2021 10:41 AM CDT Temperature 36.9 C (98.4 F) 12/09/2021 8:35 AM CDT Respiratory Rate 16 12/09/2021 10:41 AM CDT Oxygen Saturation 100% 12/09/2021 10:41 AM CDT Inhaled Oxygen Concentration - - Weight 84.6 kg (186 lb 8.2 oz) 12/09/2021 8:35 A M CDT Height 175.3 cm (5' 9) 12/09/2021 8:35 AM CDT Body Mass Index 27.54 12/09/2021 8:35 AM CDT Plan of Treatment Health Maintenance Due Date Last Done Comments Colorectal Cancer Screening Colonoscopy (10 Years) 1974 Annual Physical 1977 Hepatitis C 1992 DTaP, Tdap and Td Vaccines ( 1 - Tdap) 1993 Hepatitis B Vaccines (1 of 3 - 19+ 3-dose series) 1993 Cervical Cancer Screening Pa p with HPV Testing (Age 30 to 64) Every 5 Years 2004 Mammogram Screening 2014 COVID-19 Vaccine (3 2023-2 5 season) 2024 12/01/2020, 10/23/2020 Cervical Cancer Screening Pa p Smear (Age 30 to 64) Every 3 Years 09/13/2024 09/13/2021 Cervical Cancer Screening with HPV 09/13/2024 Pneumococcal Vaccine: 50+ Years (1 of 1 - PCV) 2024 Zoster Vaccines (1 of 2) 2024 Colorectal Cancer Screening FIT/FOBT (1 Year) Discontinued 12/09/2021 Meningococcal B Vaccine Aged Out No l onger eligible based on patient's age to complete this topic Meningococcal Vaccine Aged Out No micah orion eligible based on patient's age to complete this topic RSV Immunizations Under 20 Months Aged Out No longer eligible based on patient's age to complete this topic Procedures Procedure Name Priority Date/Time Associated Diagnosis Comments OCCULT BLOOD, FECES STAT 12/09/2021 1 0:05 AM CDT from Last 3 Months or Most Recently Relevant to Health Maintenance Results * OCCULT BLOOD, FECES (12/09/2021 10:05 AM CDT) OCCULT BLOOD FECAL POSITIVE 12/09/2021 10:32 AM CDT [facility] STOOL SPECIMEN / Unknown 12/09/2021 10:05 AM CDT us Elinor MENARD BODY FLUIDS AND STOOLS ORDERABLE S Final Result [facility] [address] [place] [address], from Last 3 Months or Most Recently Relevant to Health Maintenance Insurance [facility] Care Teams Fiber Technologist Relationship Specialty Start Date End Date Stephanie Bone MD [address] [place] [address] PCP - General FAMILY PRACTICE 12/09/21
[2025-02-16 10:22] VITALS: BP 124/78; PULSE 82; RESP 16; TEMP 36.6; O2SAT 98; BMI 26.4
[2025-02-16 10:28] LABS: BEDSIDEPREGUCG Negative (Negative)
[2025-02-16] MEDS: LACTATED RINGERS 1,000 ML 150 ML IV CONT (10:33)
--- NOTE | 2025-02-16 10:48 | P.PNAN_ITS ---
Anes - Initial Pre Proc Eval Procedure: Operation Date: 02/16/25 11:30 Proposed Procedures p Colonoscopy - Hardik Avery MD Date/Time: 02/16/25 10:48 Surgeon: Hardik Avery MD Pre Op Diagnosis: Ulcerative colitis, unspecified, w/o complications Patient Data Age: 49 Gender: F Height: 1.75 m Weight: 81.4 kg Last Vital Signs Temp 36.6 C 02/16/25 10:22 Pulse 82 02/16/25 10:22 Resp 16 02/16/25 10:22 BP 124/78 02/16/25 10:22 Pulse Ox 98 02/16/25 10:22 O2 Del Method Room Air 02/16/25 10:22 Allergies Allergy/AdvReac Type Severity Reaction Status Date / Time Sulfa (Sulfonamide Allergy Unknown Itching Verified 02/16/25 10:21 Antibiotics) upadacitinib (From Rinvoq) AdvReac Intermediate Rash Verified 02/16/25 10:21 Home Medications ?Medication ?Instructions ?Recorded ?Confirmed ?Type laygfaxp-kpa-zkzi-FA-Ca carb-vit K 1 tablet PO DAILY 12/28/21 02/16/25 History 18 mg iron-400 mcg-500 mg tablet (One-A-Day Womens Formula) norethindrone 1 mg-ethinyl 1 tablet PO DAILY 04/07/24 02/16/25 History estradiol 20 mcg (21)-iron 75 mg (7) tablet (Blisovi Fe 09/22 ()) cetirizine 10 mg capsule (Wal-Zyr 10 mg PO DAILY PRN allergy symptoms 05/13/24 02/02/25 History (cetirizine)) metronidazole 1 % topical cream 1 applic topical DAILY #60 grams 06/30/24 02/02/25 Rx upadacitinib 30 mg tablet,extended See Rx Instructions .Route 07/22/24 02/02/25 Rx release 24 hr (Rinvoq) .COMPLEX #90 tabs metformin 500 mg tablet,extended 500 mg PO DAILY #30 tabs 11/26/24 02/02/25 Rx release 24 hr (Glucophage XR) doxycyline 40 mg PO DAILY 02/02/25 02/16/25 History mesalamine 400 mg capsule (with 400 mg PO BID 02/02/25 02/16/25 History delayed release tablets inside) Laboratory Tests 02/16/25 10:22 POC Urine HCG, Qual Negative (Negative) Patient hx anesthesia problems: none Family hx anesthesia problems: none Results Review: All pre-operative results and documents have been reviewed as part of the pre- operative evaluation. [facility] Past Medical History Medical History Prediabetes Hyperlipidemia Elevated liver enzymes Leg edema Iron deficiency anemia H/O radioactive iodine thyroid ablation Ulcerative colitis (~11/2021) Tear of meniscus of left knee Surgical History Surgical History Abnormal colonoscopy (12/22/21) History of section Family History Family History Father Diabetes mellitus Hypertension Family history of elevated blood lipids Grandparent Diabetes mellitus Hypertension Family history of cardiovascular disease Cerebrovascular accident Malignant neoplasm of prostate Mother Hypertension Family history of elevated blood lipids Sibling No problems noted. Social History Social History Social History: She lives in [place] with her of 20 years. 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 She has 3 children ages 25, 19 and 17. She used to smoke socially in small to moderate amounts but quit smoking in her early 30s. She denies any significant alcohol use. She denies any illicit substance use. Code status: Full code Surrogate decision maker: Years smoked: 7 Smoking status: Former smoker Tobacco type: cigarettes Second hand tobacco smoke exposure: Yes Smoking end date: 09/03/06 Alcohol intake: current Alcohol use details: maybe 2 per month Substance use: never Substance use type: does not use Do You Feel Safe in your Home?: Yes Lack of Transportation: No Lack of Food: Never True Current Housing: I Have Housing Concerned About Future Housing: No Difficulty Paying Gas/Electric Bills: No Difficulty Paying for Meds: Decline to Answer Currently Unemployed: No Education: High School Diploma/GED Difficulty w/ Childcare or Family Care: No Living arrangements: with family Occupation/Education: occupation Additional occupation/education comments: [employer] 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 Informed Consent: The patient's anesthetic plan and its attendant risks and benefits were discussed with the patient/family/POA. Questions were solicited and answers provided to the satisfaction of the patient/family/POA.
--- NOTE | 2025-02-16 10:50 | P.PNAN_ITS ---
Anes - Initial Pre Proc Eval Procedure: Operation Date: 02/16/25 11:30 Proposed Procedures p Colonoscopy - Hardik Avery MD Date/Time: 02/16/25 10:50 Surgeon: Hardik Avery MD Pre Op Diagnosis: Ulcerative colitis, unspecified, w/o complications Patient Data Age: 49 Gender: F Height: 1.75 m Weight: 81.4 kg Last Vital Signs Temp 36.6 C 02/16/25 10:22 Pulse 82 02/16/25 10:22 Resp 16 02/16/25 10:22 BP 124/78 02/16/25 10:22 Pulse Ox 98 02/16/25 10:22 O2 Del Method Room Air 02/16/25 10:22 Allergies Allergy/AdvReac Type Severity Reaction Status Date / Time Sulfa (Sulfonamide Allergy Unknown Itching Verified 02/16/25 10:21 Antibiotics) upadacitinib (From Rinvoq) AdvReac Intermediate Rash Verified 02/16/25 10:21 Home Medications ?Medication ?Instructions ?Recorded ?Confirmed ?Type dzokfqiu-foa-dnja-FA-Ca carb-vit K 1 tablet PO DAILY 12/28/21 02/16/25 History 18 mg iron-400 mcg-500 mg tablet (One-A-Day Womens Formula) norethindrone 1 mg-ethinyl 1 tablet PO DAILY 04/07/24 02/16/25 History estradiol 20 mcg (21)-iron 75 mg (7) tablet (Blisovi Fe 09/22 ()) cetirizine 10 mg capsule (Wal-Zyr 10 mg PO DAILY PRN allergy symptoms 05/13/24 02/02/25 History (cetirizine)) metronidazole 1 % topical cream 1 applic topical DAILY #60 grams 06/30/24 02/02/25 Rx upadacitinib 30 mg tablet,extended See Rx Instructions .Route 07/22/24 02/02/25 Rx release 24 hr (Rinvoq) .COMPLEX #90 tabs metformin 500 mg tablet,extended 500 mg PO DAILY #30 tabs 11/26/24 02/02/25 Rx release 24 hr (Glucophage XR) doxycyline 40 mg PO DAILY 02/02/25 02/16/25 History mesalamine 400 mg capsule (with 400 mg PO BID 02/02/25 02/16/25 History delayed release tablets inside) Laboratory Tests 02/16/25 10:22 POC Urine HCG, Qual Negative (Negative) Patient hx anesthesia problems: none Family hx anesthesia problems: none Results Review: All pre-operative results and documents have been reviewed as part of the pre- operative evaluation. FORMERLY [facility], [facility] Past Medical History Medical History Prediabetes Hyperlipidemia Elevated liver enzymes Leg edema Iron deficiency anemia H/O radioactive iodine thyroid ablation Ulcerative colitis (~11/2021) Tear of meniscus of left knee Surgical History Surgical History Abnormal colonoscopy (12/22/21) History of section Family History Family History Father Diabetes mellitus Hypertension Family history of elevated blood lipids Grandparent Diabetes mellitus Hypertension Family history of cardiovascular disease Cerebrovascular accident Malignant neoplasm of prostate Mother Hypertension Family history of elevated blood lipids Sibling No problems noted. Social History Social History Social History: She lives in [place] with her of 20 years. 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 She has 3 children ages 25, 19 and 17. She used to smoke socially in small to moderate amounts but quit smoking in her early 30s. She denies any significant alcohol use. She denies any illicit substance use. Code status: Full code Surrogate decision maker: Years smoked: 7 Smoking status: Former smoker Tobacco type: cigarettes Second hand tobacco smoke exposure: Yes Smoking end date: 09/03/06 Alcohol intake: current Alcohol use details: maybe 2 per month Substance use: never Substance use type: does not use Do You Feel Safe in your Home?: Yes Lack of Transportation: No Lack of Food: Never True Current Housing: I Have Housing Concerned About Future Housing: No Difficulty Paying Gas/Electric Bills: No Difficulty Paying for Meds: Decline to Answer Currently Unemployed: No Education: High School Diploma/GED Difficulty w/ Childcare or Family Care: No Living arrangements: with family Occupation/Education: occupation Additional occupation/education 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 Informed Consent: The patient's anesthetic plan and its attendant risks and benefits were discussed with the patient/family/POA. Questions were solicited and answers provided to the satisfaction of the patient/family/POA.
--- NOTE | 2025-02-16 11:08 | PM.HPGS ---
History of Present Illness History of Present Illness Consent: Risks, benefits, and alternatives have been discussed and questions answered. Patient agrees to proceed with procedure. Chief complaint: Ulcerative colitis, unspecified, w/o complications Narrative: Minerva Crum is a 49 year old female here for colonoscopy to assess histological response to rinvoq (currently on symptomatic remission). She was diagnosed with severe ulcerative colitis in December 2021 after required hospitalization, then stelara without response and doing great with rinvoq Review of Systems Review of Systems: All systems reviewed & are unremarkable except as noted in HPI and below PMFSH Past Medical History Medical History Prediabetes Hyperlipidemia Elevated liver enzymes Leg edema Iron deficiency anemia H/O radioactive iodine thyroid ablation Ulcerative colitis (~11/2021) Tear of meniscus of left knee Surgical History Surgical History Abnormal colonoscopy (12/22/21) History of section Family History Family History Father Diabetes mellitus Hypertension Family history of elevated blood lipids Grandparent Diabetes mellitus Hypertension Family history of cardiovascular disease Cerebrovascular accident Malignant neoplasm of prostate Mother Hypertension Family history of elevated blood lipids Sibling No problems noted. Social History Social History Social History: She lives in [place] with her of 20 years. 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 She has 3 children ages 25, 19 and 17. She used to smoke socially in small to moderate amounts but quit smoking in her early 30s. She denies any significant alcohol use. She denies any illicit substance use. Code status: Full code Surrogate decision maker: Years smoked: 7 Smoking status: Former smoker Tobacco type: cigarettes Second hand tobacco smoke exposure: Yes Smoking end date: 09/03/06 Alcohol intake: current Alcohol use details: maybe 2 per month Substance use: never Substance use type: does not use Do You Feel Safe in your Home?: Yes Lack of Transportation: No Lack of Food: Never True Current Housing: I Have Housing Concerned About Future Housing: No Difficulty Paying Gas/Electric Bills: No Difficulty Paying for Meds: Decline to Answer Currently Unemployed: No Education: High School Diploma/GED Difficulty w/ Childcare or Family Care: No Living arrangements: with family Occupation/Education: occupation Additional occupation/education comments: [employer] admissions representative Gender identity (if verbalized by the patient): Female Spiritual care concerns: No Meds Home Medications and Allergies Home Medications ?Medication ?Instructions ?Recorded ?Confirmed ?Type wbmcpywy-aoj-rgyy-FA-Ca carb-vit K 1 tablet PO DAILY 12/28/21 02/16/25 History 18 mg iron-400 mcg-500 mg tablet (One-A-Day Womens Formula) norethindrone 1 mg-ethinyl 1 tablet PO DAILY 04/07/24 02/16/25 History estradiol 20 mcg (21)-iron 75 mg (7) tablet (Blisovi Fe 09/22 ()) cetirizine 10 mg capsule (Wal-Zyr 10 mg PO DAILY PRN allergy symptoms 05/13/24 02/02/25 History (cetirizine)) metronidazole 1 % topical cream 1 applic topical DAILY #60 grams 06/30/24 02/02/25 Rx upadacitinib 30 mg tablet,extended See Rx Instructions .Route 07/22/24 02/02/25 Rx release 24 hr (Rinvoq) .COMPLEX #90 tabs metformin 500 mg tablet,extended 500 mg PO DAILY #30 tabs 11/26/24 02/02/25 Rx release 24 hr (Glucophage XR) doxycyline 40 mg PO DAILY 02/02/25 02/16/25 History mesalamine 400 mg capsule (with 400 mg PO BID 02/02/25 02/16/25 History delayed release tablets inside) Allergies Allergy/AdvReac Type Severity Reaction Status Date / Time Sulfa (Sulfonamide Allergy Unknown Itching Verified 02/16/25 10:21 Antibiotics) upadacitinib (From Rinvoq) AdvReac Intermediate Rash Verified 02/16/25 10:21 Vital Signs Vital Signs - 24 hr 02/16/25 10:22 Temperature 98 F Pulse Rate 82 Respiratory Rate 16 Blood Pressure 124/78 Pulse Oximetry 98 Oxygen Delivery Room Air Exam Const: General: comfortable and no acute distress HENMT: Face/Nose/Sinus: Normal nares present Eyes: General: appearance normal, both eyes and all related structures Neck: Neck: no JVD Resp: Auscultation: clear to auscultation bilaterally Cardio: Rate: regular rate Rhythm: regular rhythm GI: Inspection: non-distended GI Palp: Yes Soft to palpation Skin: General skin exam: normal color Neuro: Speech: normal speech Extrem: General: normal to inspection Psych: Mental Status: mental status grossly normal Assessment and Plan Assessment and plan (1) Ulcerative colitis: Code(s): K51.90 - Ulcerative colitis, unspecified, without complications Status: Acute Assessment and Plan: colonoscopy
--- NOTE | 2025-02-16 11:18 | S_PTH ---
PATIENT: Minerva Umana LOC: [facility] Haq#:[id number] AGE/SX: 49/F ROOM: RE02/16/[address]: Hardik Avery MD : 1975 BED: DIS: 02/16/2025 SPEC #: [id number] RECD: 02/16/25 12:53 STATUS: TWILA REShyanne #: [id number] ANG: 02/16/25 11:[address]: Hardik Avery DEPT: [facility] Surgical RECD BY: Aniya Conrad ENTERED: 02/16/25 12:54 SP TYPE: Surgical OTHR DR: Stephanie BoneMD Tissues: A - Colon Biopsy B - Colon Biopsy Procedures: Hematoxylin and Eosin Stain Gross and Microscopic Level 4
[2025-02-16 11:20] VITALS: BP 115/70; PULSE 71; RESP 16; O2SAT 99
[2025-02-16 11:30] VITALS: BP 113/70; PULSE 61; RESP 16; O2SAT 100
[2025-02-16 11:38] VITALS: BP 124/68; PULSE 60; RESP 16; O2SAT 100
== END 2025-02-16 11:51 | disposition home or self-care (01) ==
PROVIDERS: Anesthesiology; PCP Family Medicine; Referring Provider Nurse Practitioner; Visit Provider Internal Medicine Gastroenterology
PROC: 0DJD8ZZ Inspection of Lower Intestinal Tract, Via Natural or Artificial Opening Endoscopic (ICD-10-PCS; CPT 45378; principal; 2025-02-16 11:30)
DX: K51.90 Ulcerative colitis, unspecified, without complications (principal); K64.8 Other hemorrhoids; Z79.620 Long term (current) use of immunosuppressive biologic; Z87.891 Personal history of nicotine dependence
CPT/HCPCS: 45380; 88305; J2704; J7120

== ENCOUNTER 2025-02-27 14:39 | Outpatient (CLI) | payer BC, SELFPAY ==
--- NOTE | ~2025-02-27 | MM_ITS ---
EXAMINATION: MM screening viola BI w edil HISTORY: Screening TECHNIQUE: Craniocaudal and mediolateral oblique 3-D tomosynthesis images were obtained and synthetic 2-D images were generated. CAD analysis was submitted and interpreted. COMPARISON: No prior mammogram is available for comparison at this institution. If prior imaging does become available, comparison will be performed. BREAST PARENCHYMAL COMPOSITION: There are scattered areas of fibroglandular density. FINDINGS: Punctate calcification within the retroareolar position of the right breast, benign in morp hology. Unremarkable parenchymal pattern without suspicious microcalcifications, architectural distortion, di screte masses or significant asymmetry. IMPRESSION: 1. No mammographic evidence of malignancy. 2. Recommend routine screening mammography in one year. BI-RADS Category 2: Benign finding(s). Reviewed, dictated and finalized at location []
== END 2025-02-27 14:40 | disposition home or self-care (01) ==
LOC: MICIMG 14:41
PROVIDERS: PCP Family Medicine; Visit Provider Obstetrics & Gynecology
DX: Z12.31 Encounter for screening mammogram for malignant neoplasm of breast (principal)
CPT/HCPCS: 77063; 77067

== ENCOUNTER 2025-03-03 14:49 | Outpatient (CLI) | payer BC, SELFPAY ==
--- NOTE | ~2025-03-03 | US_ITS ---
Pelvic ultrasound. Clinical History: Pelvic pain Technique: Realtime transvaginal scanning of the pelvis was performed. Color flow Doppler and Doppler spectral analysis were performed. Findings: The uterus is anteverted, and measures 11.6 x 6.4 x 6.2 cm. The endometrial stripe has a t hickness of approximately 4 mm. There is a complex central fibroid near the fundus measuring 5.3 x 5. 2 x 4.8 cm.. The right ovary measures 1.5 x 1.4 x 2.0 cm. No significant right ovarian or adnexal mass is seen. The left ovary measures 1.5 x 1.4 x 1.7 cm. No significant left ovarian or adnexal mass is seen. There is no evidence of free fluid in the cul de sac. Impression: 5.3 cm uterine fibroid, as above. Reviewed, dictated and finalized at [facility]. Impression: 5.3 cm uterine fibroid, as above.
== END 2025-03-03 14:50 | disposition home or self-care (01) ==
LOC: MICIMG 14:50
PROVIDERS: PCP Family Medicine; Visit Provider Family Medicine
DX: R10.31 Right lower quadrant pain (principal)
CPT/HCPCS: 76830